=== PATIENT | female | born 1995 | race Caucasian/White ===

== ENCOUNTER 2016-04-22 10:30 | Emergency (ER) | payer BC, OTHER ==
[2016-04-22] MEDS: CLOPIDOGREL BISULFATE 75 MG TABLET PO STA (10:50)
[2016-04-22] MEDS ORDERED: ASPIRIN 81 MG TAB.CHEW PO ONE (10:54)
[2016-04-22] MEDS ORDERED: HEPARIN SODIUM,PORCINE 5,000 UNITS/ML VIAL IV ONE (10:54)
[2016-04-22] MEDS ORDERED: HEPARIN SODIUM,PORCINE/D5W 25,000 UNITS/500 ML BAG IV SCH (11:00)
[2016-04-22 11:03] LABS: Hematocrit 41.7 % (37.0-47.0); Hemoglobin 12.4 gm/dL (12.5-16.0); Mean Cell Volume 79.9 fl (78-100); Mean Corpuscular Hemoglobin 23.8 pg (27-31); Mean Corpuscular Hgb Conc 29.7 g/dl (32-36); Mean Platelet Volume 9.3 fl (6.0-9.5); Neutrophil # 12.3 K/mm3 (1.3-6.0); Neutrophil % 83.9 % (42-75.0); Platelet Count 396 K/mm3 (150-450); Red Blood Count 5.22 M/mm3 (4.2-5.4); Red Cell Distribution Width 16.7 % (11.5-14.0); White Blood Count 14.6 K/mm3 (4.0-10.5)
[2016-04-22] MEDS ORDERED: NITROGLYCERIN IN 5 % DEXTROSE 50 MG/250 ML INFUS..BTL IV PRN (11:04)
[2016-04-22 11:07] VITALS: BP 115/64
[2016-04-22 11:10] LABS: Prothrombin Time (Patient) 10.4 Seconds (9.4-11.4)
[2016-04-22 11:12] LABS: Partial Thrombolplastin Time 22.9 Seconds (24-32)
[2016-04-22 11:19] LABS: Albumin * 3.7 gm/dl (3.4-5.0); BUN/Creatinine Ratio 13.8 (9.0-21.6); Bilirubin, Total 0.4 mg/dL (0.0-1.1); Ca. Corrected For Albumin 8.9 mg/dL (8.4-10.2); Carbon Dioxide 29.4 mmol/L (24-32.6); Potassium 4.4 mmol/L (3.4-4.6); Total Protein 7.3 gm/dL (6.2-8.2)
--- NOTE | 2016-04-22 11:27 | ERNOTE ---
Chest Pain/Cardiac HPI Date of Service: 04/22/16 Chief Complaint: Chest Pain Source: patient, family Immunizations: IMMUNIZATION HX Immunizations Up to Date Yes History of Influenza Vaccine Yes Hx Pneumococcal Vaccination No Allergies/Adverse Reactions: Allergies cefaclor [From Ceclor] Allergy (Intermediate, Verified 02/20/16 08:59) Hives Penicillins Allergy (Intermediate, Verified 02/20/16 08:59) Hives Home Medications: HOME MEDICATIONS Albuterol Sulfate [Proair Respiclick] 2 puff INH PRN PRN 09/13/15 [Last Taken Unknown] Ibuprofen [Motrin] 200 - 800 mg PO Q6H PRN 7 Days 02/07/16 [Last Taken Unknown] Oxycodone HCl/Acetaminophen [Percocet 5-325 mg Tablet] 1 each PO Q4H PRN #20 tablet 02/07/16 [Last Taken Unknown] Date (Duration): 04/22/16 Time (Timing): 08:00 Timing: constant Severity/Quality: moderate, pressure Location: substernal Chest Pain Radiation: no radiation Activities at Onset: none Nitro Today/Relief: provided by ED - Tridil Aspirin Treatment Today: 81 mg x 4, provided by ED Associated Symptoms: Present: shortness of breath Prior Chest Pain/Cardiac Workup: Reports: non-cardiac Review of Systems - Review of Systems Constitutional: Present: See HPI EYE: Present: no symptoms reported ENT: Present: no symptoms reported Respiratory: Present: shortness of breath Cardiology: Present: chest pain Gastrointestinal/Abdominal: Present: no symptoms reported Genitourinary: Present: no symptoms reported Musculoskeletal: Present: no symptoms reported Skin: Present: no symptoms reported Neurological: Present: no symptoms reported Endocrine: Present: no symptoms reported Hematologic/Lymphatic: Present: no symptoms reported Psych: Present: no symptoms reported - Patient's Past Medical History Patient History - Medical: Anxiety, Depression Patient History - Cardiac/Respiratory: Asthma Patient History - Cancer: No Hx of Cancer Patient History - Surgical Procedures: , Other - PDA - Family History Mother Family History - Medical: Diabetes Type 2 Brother Family History - Medical: , Other Grandfather-Maternal Family History - Cancer: Lung - Social History Living Situations: home Alcohol Use: none Drug Use: none Physical Exam - Physical Exam General Appearance: Present: wd/wn, alert, moderate distress Eye Exam: Normal inspection: bilateral, PERRL: bilateral Ears, Nose, Throat: Present: normal ENT inspection, hearing grossly normal, normal pharynx Neck: Present: normal inspection, nontender Respiratory: Present: no respiratory distress, normal breath sounds, no accessory muscle use, chest nontender, lungs clear Cardiovascular/Chest: Present: no murmur, normal peripheral pulses, bradycardia Gastrointestinal/Abdominal: Present: normal bowel sounds, nontender, nondistended, soft, no organomegaly Rectal Exam: Present: deferred Back Exam: Present: normal inspection, normal range of motion Extremity Exam: Present: normal inspection, non-tender, no edema, normal range of motion Neurological Exam: Present: alert, oriented, normal mood/affect Skin Exam: Present: normal color, warm/dry Lymphatic Exam: Present: no adenopathy ED Progress - Results and Orders Patient's Lab Results:: I have reviewed the patient's lab results. - Vital Signs Patient's Vital Signs:: I have reviewed the patient's vital signs. Vital Signs: Vital Signs 04/22/16 04/22/16 10:40 11:00 Temperature 35.7 C L Pulse Rate 44 L 49 L Respiratory 18 Rate Blood Pressure 116/52 115/64 O2 Sat by Pulse 100 Oximetry - EKG EKG: ST elevation, STEMI EKG read: Interp. by me - Progress/Reassessment Chief Complaint: Chest Pain Progress:: Unchanged Progress Note-Subjective: 04/22/16 11:32 Pt appears to be having an Inferior VA and these changes were not present on previous EKG's. Pt to be transferred to [facility] for possible PTCA. - Transfer of Care Expected Disposition: Transfer - [facility] Departure - Departure Clinical Impression: AMI inferior wall Disposition: [facility] Condition: Critical - Critical Care Total Time (mins): 40 Critical Care: Pt received ASA, Plavix, Heparin and a Tridil drip as well as O2 while in the ED. Pain was marginally reduced
== END 2016-04-22 11:13 | disposition short-term general hospital (02) ==
LOC: ER 10:30
DX: I21.3 ST elevation (STEMI) myocardial infarction of unspecified site (principal)

== ENCOUNTER 2016-05-10 10:13 | Emergency (ER) | payer BC, OTHER ==
[2016-05-10 10:24] VITALS: BP 159/98
--- NOTE | 2016-05-10 10:47 | ERNOTE ---
Upper Extremity HPI - Narrative Date of Service: 05/10/16 - General Extremities Pain Location: hand: bilateral - L third medial finger laceration R third fourth and fifth knuckle contusion Time Seen by Provider: 05/10/16 10:30 Source: patient Exam Limitations: no limitations - Immun/Allergies/Home Medications Immunizations: IMMUNIZATION HX Immunizations Up to Date Yes History of Influenza Vaccine No Hx Pneumococcal Vaccination No Allergies/Adverse Reactions: Allergies Allergy/AdvReac Type Severity Reaction Status Date / Time cefaclor [From Ceclor] Allergy Intermediate Hives Verified 05/10/16 10:24 Penicillins Allergy Intermediate Hives Verified 05/10/16 10:24 Home Medications: HOME MEDICATIONS Albuterol Sulfate [Proair Respiclick] 2 puff INH PRN PRN 09/13/15 [Last Taken Unknown] Ibuprofen [Motrin] 200 - 800 mg PO Q6H PRN 7 Days 02/07/16 [Last Taken Unknown] - History of Present Illness Narrative: Pt. comes in with c/o cutting her medial L third on a glass while doing dishes this morning and R hand pain after punching a wall with her R hand as a reaction to the laceration of her L hand. Pt. denies any SOB, CP, NVD, numbness , or tingling. Pt. denies an prehospital treatment alleviating factors or alleviating factors. Review of Systems - Review of Systems Constitutional: Present: no symptoms reported. Absent: recent illness, fever, chills, weakness, fatigue, malaise EYE: Present: no symptoms reported ENT: Present: no symptoms reported Respiratory: Present: no symptoms reported. Absent: shortness of breath, cough , wheezing Cardiology: Present: no symptoms reported. Absent: chest pain, palpitations, edema Gastrointestinal/Abdominal: Present: no symptoms reported. Absent: nausea, vomiting, diarrhea Genitourinary: Present: no symptoms reported Musculoskeletal: Present: joint pain - R hand, joint swelling - R third fourth and fifth DIP joint. Absent: back pain Skin: Present: no symptoms reported. Absent: rash, change in hair/nails Neurological: Present: no symptoms reported. Absent: headache, dizziness/light- headedness, numbness, tingling All Other Systems: All systems neg except as marked - Patient's Past Medical History Patient History - Medical: Anxiety, Depression Patient History - Cardiac/Respiratory: No pertinent hx Patient History - Cancer: No Hx of Cancer Patient History - Surgical Procedures: , Other Patient History - Other: None LMP (Calendar): 05/07/15 - Family History Mother Family History - Medical: Diabetes Type 2 Brother Family History - Medical: , Other - Social History Living Situations: home Smoking Status: Current every day smoker Alcohol Use: none Drug Use: none - Immunizations Immunizations Up to Date: Yes Hx Pneumococcal Vaccination: No History of Influenza Vaccine: No Physical Exam - Physical Exam General Appearance: Present: wd/wn, alert, no apparent distress Eye Exam: Normal inspection: bilateral, PERRL: bilateral, EOMI: bilateral Ears, Nose, Throat: Present: normal ENT inspection Neck: Present: normal inspection, nontender Respiratory: Present: no respiratory distress, normal breath sounds, no accessory muscle use, chest nontender, lungs clear Cardiovascular/Chest: Present: regular rate, rhythm, no murmur, normal peripheral pulses Gastrointestinal/Abdominal: Present: normal bowel sounds, nontender, nondistended, soft, no organomegaly Back Exam: Present: normal inspection, normal range of motion, no CVA tenderness , no vertebral tenderness Extremity Exam: Present: decreased range of motion - R third, fourth, and fifth PIP joint L third finger Neurological Exam: Present: alert, oriented, normal mood/affect, no motor/ sensory deficits Skin Exam: Present: normal color, warm/dry, other - ecchymosis R third fourth and fith PIP joint dorsal and dorsal lateral hand. laceration lunar shape 1cm in length medial third finger. ED Progress - Vital Signs Patient's Vital Signs:: I have reviewed the patient's vital signs. Vital Signs: Vital Signs 05/10/16 10:18 Temperature 35.5 C L Pulse Rate 99 Respiratory 12 Rate Blood Pressure 159/98 O2 Sat by Pulse 100 Oximetry - X-Ray X-Ray #1 X-Ray: hand Interpretation: Reviewed by me X-ray Comments: no acute - Progress/Reassessment Chief Complaint: Hand Injury/Pain Procedures Left Medial Volar Finger 3rd Digit Anesthesia: Lidocaine w/ Epi I & D Prep: betadine prep, sterile drapes applied Wound's Depth/Shape: flap Wound Explored: clean, to base, no foreign body Wound Intervention: irrigated w/saline, debrided minimal Distal NVT: neuro/vasc intact, no tendon injury Wound Repaired With: sutures Suture Size/Type: 6-0, nylon Number of Sutures: 2 Layer Closure: Simple Estimated blood loss (ml): 2 Wound Dressing: sterile dressing applied Complications: Pt nighat procedure well Departure Clinical Impression: Hand contusion Qualifiers: Encounter type: initial encounter Laterality: right Qualified Code(s): S60.221A - Contusion of right hand, initial encounter Finger laceration Qualifiers: Encounter type: initial encounter Qualified Code(s): S61.219A - Laceration without foreign body of unspecified finger without damage to nail, initial encounter - Departure Disposition: Home self-care Condition: Good Instructions: Contusion, [id number], Form - Excuse from Work, School, or Physical Activity, Laceration Care, Adult, [id number] Additional Instructions: Please do not use L hand as much as possible for 24 hours then keep clean and dry and apply neosporin twice a day. Have sutuews removed in 7-10 days.
[2016-05-10] MEDS ORDERED: KETOROLAC TROMETHAMINE 30 MG/ML VIAL IM ONE (11:55)
[2016-05-10] MEDS ORDERED: KETOROLAC TROMETHAMINE 30 MG/ML VIAL ONE (11:56)
== END 2016-05-10 12:21 | disposition home or self-care (01) ==
LOC: ER 10:13
PROC: 0HQGXZZ Repair Left Hand Skin, External Approach (ICD-10-PCS; principal; 2016-05-10)
DX: S61.213A Laceration without foreign body of left middle finger without damage to nail, initial encounter (principal); W25.XXXA Contact with sharp glass, initial encounter; S60.221A Contusion of right hand, initial encounter; W22.01XA Walked into wall, initial encounter

== ENCOUNTER 2016-05-20 11:42 | Emergency (ER) | payer BC, OTHER ==
[2016-05-20 11:42] VITALS: BP 159/98
[2016-05-20] MEDS ORDERED: SUCRALFATE 1 G/10 ML UDC PO ONE (12:02)
[2016-05-20] MEDS ORDERED: MAG HYDROX/ALUMINUM HYD/SIMETH 30 ML UDC PO ONE (12:02)
[2016-05-20] MEDS ORDERED: LIDOCAINE HCL 20 ML UDC PO ONE (12:02)
--- NOTE | 2016-05-20 12:15 | ERNOTE ---
Abdominal HPI - Narrative Date of Service: 05/20/16 - General Chief Complaint: Abdominal Pain Time Seen by Provider: 05/20/16 11:57 Source: patient, RN notes reviewed, past records Exam Limitations: other - Very poor historian - Immun/Allergies/Home Medications Immunizatons: IMMUNIZATION HX Immunizations Up to Date Yes History of Influenza Vaccine No Hx Pneumococcal Vaccination No Allergies/Adverse Reactions: Allergies cefaclor [From Ceclor] Allergy (Intermediate, Verified 05/20/16 11:50) Hives Penicillins Allergy (Intermediate, Verified 05/20/16 11:50) Hives Home Medications: HOME MEDICATIONS Albuterol Sulfate [Proair Respiclick] 2 puff INH PRN PRN 09/13/15 [Last Taken Unknown] Omeprazole 40 mg PO DAILY #30 capsule. 05/20/16 [Last Taken Unknown] - History of Present Illness Narrative: 20 y/o female ambulatory to the ED with her grandmother for abdominal/chest pain that woke her up at 0530 this morning. The pain is constant and is in her lower sternal region. She took ibuprofen and aspirin without improvement. She also reports making herself vomit which did not help either. She reports having a history of acid reflux during her that felt similar but less severe. She was seen here less than a month ago with chest pain. Her EKG showed an inferior [place]. She was transferred to [facility]. She reports being "sent home on a heart monitor" but when asked if she did indeed have a heart attack she does not know. Date (Duration): 05/20/16 Time (Timing): 05:30 Timing: constant Quality: severe, aching, stabbing Activities at Onset: sleep Modifying Factors - (Improves): Absent: analgesics, sitting up, vomiting Modifying Factors - (Worsens): Absent: breathing, coughing, lying down Associated Symptoms: Present: chest pain. Absent: headache, back pain, neck pain, diaphoresis, fever/chills, shortness of breath, syncope Prior Abdominal Problems: Present: similar symptoms Prior Treatment: Present: recently seen, treated by physician, recently hospitalized. Absent: currently on antibiotics Review of Systems - Review of Systems Constitutional: Present: See HPI EYE: Present: no symptoms reported ENT: Absent: nose congestion, sore throat Respiratory: Absent: shortness of breath, cough Cardiology: Present: See HPI Gastrointestinal/Abdominal: Present: See HPI Genitourinary: Absent: other - possible Musculoskeletal: Present: See HPI Skin: Present: no symptoms reported Neurological: Present: See HPI Endocrine: Present: no symptoms reported Hematologic/Lymphatic: Present: no symptoms reported Psych: Present: no symptoms reported - Patient's Past Medical History Patient History - Medical: Anemia, Anxiety, Depression Patient History - Cardiac/Respiratory: Asthma, Bronchitis, Other - Patent ductus arteriosis, bronchopulmonary dysplasia Patient History - Cancer: No Hx of Cancer Patient History - Surgical Procedures: , Ear Tubes, T & A, Other - Repair of congenital cardiac abnormality, ovarian cystectomy Patient History - Other: None LMP (females 10-50): last week LMP (Calendar): 05/07/15 - Family History Mother Family History - Medical: Diabetes Type 2 Brother Family History - Medical: , Other - Social History Living Situations: home Abuse History: No History of abuse Psych History: No pertinent hx Smoking Status: Current every day smoker Cigarettes Packs Per Day: 0.3 Have you smoked in the past 12 months: Yes Alcohol Use: none Drug Use: none - Immunizations Immunizations Up to Date: Yes Hx Pneumococcal Vaccination: No History of Influenza Vaccine: No Physical Exam - Physical Exam General Appearance: Present: alert, mild distress, obese, other - disheveled, dirty appearance, laying on exam table moaning Neck: Present: normal inspection, nontender, supple Respiratory: Present: no respiratory distress, normal breath sounds, no accessory muscle use, lungs clear Cardiovascular/Chest: Present: regular rate, rhythm, no murmur, normal peripheral pulses Gastrointestinal/Abdominal: Present: normal bowel sounds, nondistended, soft, tenderness - epigastric Neurological Exam: Present: alert, oriented, no motor/sensory deficits. Absent : normal mood/affect Skin Exam: Present: normal color, warm/dry ED Progress - Vital Signs Patient's Vital Signs:: I have reviewed the patient's vital signs. Vital Signs: Vital Signs 05/20/16 11:47 Temperature 35.7 C L Pulse Rate 67 Respiratory 16 Rate - EKG EKG: other - Sbrady, 43 - Progress/Reassessment Chief Complaint: Abdominal Pain Progress:: Improved Progress Note-Subjective: 05/20/16 12:56 Patient reports pain mostly gone after GI cocktail, talking on phone - appears to not be in any discomfort. Will rx Zantac. Departure - Departure Clinical Impression: Gastroesophageal reflux Qualifiers: Esophagitis presence: esophagitis presence not specified Qualified Code(s): K21.9 - Gastro-esophageal reflux disease without esophagitis Disposition: Home Follow Up Needed Condition: Stable Instructions: Gastroesophageal Reflux Disease, Adult, [id number] Additional Instructions: Take Prilosec as directed OK to take TUMS if needed for symptoms as well Do not take aspirin, ibuprofen, or aleve on an empty stomach Follow up with your doctor if symptoms do not improve Prescriptions: Omeprazole 40 mg PO DAILY #30 capsule.
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
== END 2016-05-20 13:16 | disposition home or self-care (01) ==
LOC: ER 11:42
DX: K21.9 Gastro-esophageal reflux disease without esophagitis (principal); F17.210 Nicotine dependence, cigarettes, uncomplicated

== ENCOUNTER 2016-08-20 13:32 | Emergency (ER) | payer BC, OTHER ==
--- NOTE | 2016-08-20 14:29 | ERNOTE ---
Medical Problem HPI - Narrative Date of Service: 08/20/16 - General Chief Complaint: General Assessment Time Seen by Provider: 08/20/16 14:23 Source: patient Exam Limitations: no limitations - Immun/Allergies/Home Medications Immunizations: IMMUNIZATION HX Immunizations Up to Date Yes History of Influenza Vaccine Yes Hx Pneumococcal Vaccination No Allergies/Adverse Reactions: Allergies cefaclor [From Ceclor] Allergy (Intermediate, Verified 08/20/16 13:42) Hives Penicillins Allergy (Intermediate, Verified 08/20/16 13:42) Hives Home Medications: HOME MEDICATIONS Albuterol Sulfate [Proair Respiclick] 2 puff INH PRN PRN 09/13/15 [Last Taken Unknown] Omeprazole 40 mg PO DAILY #30 capsule. 05/20/16 [Last Taken Unknown] Pnv95/Iron Fum/Folic Acid [ Tablet] 1 each PO DAILY 08/20/16 [Last Taken Unknown] - History of Present History Narrative: Pt. comes in with 1 week history of bruising and swelling of her vagina. Pt. had a fall a week ago and she is 18 weeks so she went to see her OBGYN on Tuesday and was told she was fine but the pain in her vaginal area and bruidsing is getting worse per pt. Pt. denies any prehospital treatment alleviating or aggravating factors. Review of Systems - Review of Systems Constitutional: Present: no symptoms reported. Absent: recent illness, fever, chills, weakness, fatigue EYE: Present: no symptoms reported ENT: Present: no symptoms reported Respiratory: Present: no symptoms reported. Absent: shortness of breath, cough , wheezing Cardiology: Present: no symptoms reported. Absent: chest pain, palpitations, edema Gastrointestinal/Abdominal: Present: no symptoms reported Genitourinary: Present: pain - vagina, other - swelling and bruising to vagina Musculoskeletal: Present: no symptoms reported. Absent: back pain, joint pain Skin: Present: no symptoms reported Neurological: Present: no symptoms reported. Absent: headache, dizziness/light- headedness, numbness, tingling All Other Systems: All systems neg except as marked - Patient's Past Medical History Patient History - Medical: Anemia, Anxiety, Depression Patient History - Cardiac/Respiratory: Asthma, Bronchitis, Other Patient History - Cancer: No Hx of Cancer Patient History - Surgical Procedures: , Ear Tubes, T & A, Other Patient History - Other: None LMP (Calendar): 05/07/15 - Family History Mother Family History - Medical: Diabetes Type 2 Brother Family History - Medical: , Other - Social History Living Situations: home Abuse History: No History of abuse Psych History: No pertinent hx Smoking Status: Never smoker Alcohol Use: none Drug Use: none - Immunizations Immunizations Up to Date: Yes Hx Pneumococcal Vaccination: No History of Influenza Vaccine: Yes Physical Exam - Physical Exam General Appearance: Present: wd/wn, alert, no apparent distress Eye Exam: Normal inspection: bilateral, PERRL: bilateral, EOMI: bilateral Ears, Nose, Throat: Present: normal ENT inspection, normal pharynx Neck: Present: normal inspection, nontender. Absent: lymphadenopathy (R), lymphadenopathy (L) Respiratory: Present: no respiratory distress, normal breath sounds, no accessory muscle use, chest nontender, lungs clear Cardiovascular/Chest: Present: regular rate, rhythm, no murmur, normal peripheral pulses Back Exam: Present: normal inspection Extremity Exam: Present: normal inspection Pelvic Exam: Present: other - vulvar bruising and swelling from hematoma L anterior vulva healing as expected. ED Progress - Vital Signs Patient's Vital Signs:: I have reviewed the patient's vital signs. Vital Signs: Vital Signs 08/20/16 13:38 Temperature 36.5 C Pulse Rate 89 Respiratory 18 Rate Blood Pressure 144/79 O2 Sat by Pulse 100 Oximetry - Progress/Reassessment Chief Complaint: General Assessment Departure - Departure Clinical Impression: Vulvar hematoma Disposition: Home self-care Condition: Good Instructions: Hematoma, [id number], Form - Excuse from Work, School, or Physical Activity Additional Instructions: Please follow up with [facility] in 1 week and apply heat and ice to bruised area alternating for a week.
--- OUTSIDE RECORDS SUMMARY | 2016-08-20 14:31 | XMS REPORT | Continuity of Care Document ---
:1995 Author Organization [facility] ([facility]) Address [address] [place] [address] Phone [phone] Care Team Providers Name Role Phone Rito Johnson Primary Care Provider [phone] Source Comments This disclosure is being made pursuant to the Care Everywhere program, applicable federal and state laws, and may not contain all informaitonavailable regarding this patient.[facility] ([facility]) Active Allergies and Adverse Reactions Allergen [...] Indications: ABDOMINAL SURGERY DEEP VEIN THROMBOSIS PREVENTION vitamin Take 1 tablet by Active ( PLUS) mouth daily. 27-1 mg tablet Active Problems Problem Noted Date Monocular esotropia, [...] Diagnosis Procedure Comments Diagnosis Procedure Comments laser 09/09/01 Muscle surgery ou Other Ocular Diagnoses: 1.ROP 2. Ocular Procedures OD: 1.see above 2. Ocular Procedures OS: 1. See above 2. Non-Ocular Medical History: 1. 2. Transient alteration of awareness 05/20/2008 06/09/2011 Most Recent Encounters Date Type Specialty Providers Description 07/29/2016 Office Visit Ophthalmology - Manas Phan, Dx: Retinal holes, Specialty MD left (Primary Dx) Immunizations Name Dates Previously Given Next Due DTP/Hib 01/01/1994,1993 Hepatitis B, unspecified 01/01/1994,1993 MMR 05/25/2013 Polio, unspecified 01/01/1994,1993 Social History Tobacco Use Types Packs/Day Years Used Date Current Some Day Smoker Cigarettes 0.25 5 Quit: 02/07/2014 Smokeless Tobacco: Never Used Tobacco Cessation:Ready to Quit: No; Counseling Given: Yes Comments:Quit 09/2012. Alcohol Use Drinks/Week [...] 06/27/2014 6:00 AM CDT Plan of Care Date Type Specialty Providers Description 08/31/2016 Appointment Ophthalmology - Avila Souza MD Chief Comp: Patient Specialty [address] [place] [address] Visit [phone] (Fax) Health Maintenance Due Date Last Done Comments Hepatitis B Vaccine (3 of 3 - Primary 03/05/1994 01/01/1994, 1993 Series) HPV Vaccine (1 of 3 - Female 3 Dose 09/02/2004 Series) Tdap Vaccine 09/02/2004 Cervical Cancer Screening 09/03/2011 Lipid Disorder Screening 09/03/2011 Td Vaccine 09/03/2011 01/01/1994, 1993 Pneumococcal Vaccine (1 of 1 - PPSV23) 09/02/2012 Varicella Vaccine (1 of 2 - Adult - No 06/22/2013 Evidence of Immunity) Influenza Vaccine: Seasonal (Season Ended) 2016 MMR Vaccine Completed 05/25/2013 Results from Last 3 Months Not on file
[2016-08-20 15:06] VITALS: BP 131/72
== END 2016-08-20 15:07 | disposition home or self-care (01) ==
LOC: ER 13:32
DX: N90.89 Other specified noninflammatory disorders of vulva and perineum (principal); Z33.1 Pregnant state, incidental; Z3A.18 18 weeks gestation of pregnancy; W19.XXXD Unspecified fall, subsequent encounter

== ENCOUNTER 2016-12-20 13:48 | Observation (INO) | payer OTHER ==
[2016-12-20] MEDS ORDERED: RINGER'S SOLUTION,LACTATED 1,000 ML IV ONE (14:49)
[2016-12-20] MEDS: DEXTROSE 5%-LACTATED RINGERS 1,000 ML IV PRN (18:02)
[2016-12-20] MEDS ORDERED: ACETAMINOPHEN 325 MG TABLET PO PRN (18:19)
[2016-12-20 18:53] LABS: Hematocrit 32.3 % (37.0-47.0); Hemoglobin 9.5 gm/dL (12.5-16.0); Mean Cell Volume 73.2 fl (78-100); Mean Corpuscular Hemoglobin 21.5 pg (27-31); Mean Corpuscular Hgb Conc 29.4 g/dl (32-36); Mean Platelet Volume 9.8 fl (6.0-9.5); Neutrophil # 7.9 K/mm3 (1.3-6.0); Neutrophil % 76.1 % (42-75.0); Platelet Count 232 K/mm3 (150-450); Red Blood Count 4.41 M/mm3 (4.2-5.4); Red Cell Distribution Width 16.3 % (11.5-14.0); White Blood Count 10.4 K/mm3 (4.0-10.5)
[2016-12-20 18:54] LABS: Urine Bilirubin Negative (NEGATIVE); Urine Blood Negative /ul (NEGATIVE); Urine Ketone 5 mg/dL (NEGATIVE); Urine Nitrite Negative (NEGATIVE); Urine Protein Negative (NEGATIVE); Urine Urobilinogen Normal (NORMAL)
[2016-12-20 19:01] LABS: Urine Appearance Clear; Urine Bacteria None Seen; Urine Color Yellow; Urine RBC None Seen /hpf (0-5); Urine WBC None Seen /hpf (0-5)
[2016-12-20 19:15] LABS: Cocaine Ur Negative (NEGATIVE); Urine Barbiturate Negative (NEGATIVE); Urine Benzodiazepines Negative (NEGATIVE); Urine Opiates Negative (NEGATIVE); Urine PCP Negative (NEGATIVE); Urine THC Negative (NEGATIVE)
--- NOTE | 2016-12-21 08:43 | PN ---
Subjective - Date and Time Seen Date: 12/21/16 Time: 08:37 Objective - Review of Systems Generalized/Overall Review: Reports: No Symptoms Reported EENTM: Reports: No Symptoms Reported Respiratory: Reports: No Symptoms Reported Cardiac: Reports: No Symptoms Reported Abdominal: Reports: No Symptoms Reported Genitourinary Symptoms: Reports: No Symptoms Reported Musculoskeletal Complaints: Reports: No Symptoms Reported Neurological: Reports: No Symptoms Reported Skin: Reports: No Symptoms Reported Endocrine: Reports: No Symptoms Reported - Vitals Vitals: Last Vital Signs Temp 36.9 C 08/20/16 15:04 Pulse Resp BP 131/72 08/20/16 15:04 Pulse Ox heart tones are baseline of 130. NST reactive. Contractions resolved. - Abnormal Lab Findings Abnormal Lab Findings: Abnormal Lab Results 12/20/16 Range/Units 18:14 Hgb 9.5 L (12.5-16.0) gm/dL Hct 32.3 L (37.0-47.0) % MCV 73.2 L (78-100) fl MCH 21.5 L (27-31) pg MCHC 29.4 L (32-36) g/dl RDW 16.3 H (11.5-14.0) % MPV 9.8 H (6.0-9.5) fl Immature Gran % (Auto) 1.80 H (0.001-0.429) % Immature Gran # (Auto) 0.19 H (0.000-0.0310) K/mm3 Neutrophils % 76.1 H (42-75.0) % Lymphocytes % 13.9 L (20-51) % Neutrophils # 7.9 H (1.3-6.0) K/mm3 Lymphocytes # 1.4 L (1.5-3.5) k/mm3 - Exam Constitutional: Present: Alert, Oriented x3, Cooperative, No distress ENT Exam: Present: hearing grossly normal Breasts: Present: Exam deferred Respiratory: Present: no respiratory distress Cardiovascular/Chest: Present: normal peripheral pulses, regular rate, rhythm, no edema Abdomen: Present: soft, nontender, no rebound tenderness /Rectal: Present: Exam deferred Extremity: Present: non-tender, no pedal edema, no calf tenderness Skin Exam: Present: normal color, warm/dry, no cyanosis Neurologic: Present: normal mood/affect, oriented x 3 Appearance: Present: appropriate appearance Eye contact: Present: cooperative, good eye contact, normal speech Assessment/Plan - Problems/Diagnosis (1) Fetus or affected by maternal injury Problem: Acute Narrative: Abruption precautions. Avoid heavy lifting or strenuous activity. Use extra caution to prevent future falls. (2) Threatened labor Problem: Acute Qualifiers: Trimester: third trimester Qualified Code(s): O47.03 - False labor before 37 completed weeks of gestation, third trimester Narrative: Discharge home with labor precautions. Follow-up in the office in 1 week.
[2016-12-21] MEDS: DEXTROSE 5%-LACTATED RINGERS 1,000 ML IV PRN (09:47)
== END 2016-12-21 09:50 | disposition home or self-care (01) ==
LOC: OBCLINIC 13:48 → OB 17:55
PROVIDERS: ADMIT Obstetrics & Gynecology; ATTEND Obstetrics & Gynecology
DX: O71.89 Other specified obstetric trauma (principal); O99.013 Anemia complicating pregnancy, third trimester; E66.01 Morbid (severe) obesity due to excess calories; Z87.891 Personal history of nicotine dependence; O47.03 False labor before 37 completed weeks of gestation, third trimester; Z3A.31 31 weeks gestation of pregnancy
CPT/HCPCS: 36415; 59025; 80307; 81001; 85025; 87081; G0378

== ENCOUNTER 2017-02-07 16:41 | Inpatient (IN) | payer OTHER ==
[2017-02-07] MEDS ORDERED: OXYTOCIN 20 UNITS in RINGER'S SOLUTION,LACTATED 1,000 ML IV ONE (16:47)
[2017-02-07] MEDS ORDERED: RINGER'S SOLUTION,LACTATED 1,000 ML IV PRN ×2 (16:47)
[2017-02-07] MEDS ORDERED: CLINDAMYCIN PHOSPHATE 900 MG in DEXTROSE 5 % IN WATER 100 ML IV ONE ×2 (16:47)
[2017-02-07] MEDS ORDERED: RINGER'S SOLUTION,LACTATED 1,000 ML IV ONE ×4 (17:45→19:50)
[2017-02-07] MEDS ORDERED: ONDANSETRON HCL/PF 2 MG/ML VIAL IV PRN (19:50)
[2017-02-07] MEDS ORDERED: SIMETHICONE 80 MG TAB.CHEW PO PRN (19:50)
[2017-02-07] MEDS ORDERED: BISACODYL 10 MG SUPP.RECT RC PRN (19:50)
[2017-02-07] MEDS ORDERED: SENNOSIDES 8.6 MG TABLET PO PRN (19:50)
[2017-02-07] MEDS ORDERED: HYDROmorphone HCL 4 MG/ML DISP.SYRIN IV ONE (19:54)
--- NOTE | 2017-02-07 19:56 | OR ---
Operative Report - Dictated Report Narrative: Indication: 21-year-old 4 para 210 with prior section 3 presents in labor status: Planned Pre Operative Diagnosis: 38-1/7 week intrauterine , prior section 3, labor, morbid obesity Post Operative Diagnosis: Same. Procedure: Repeat low transverse section. Surgeon: Minoo Charlton DO Ranch Helper: OR Staff Anesthesia: Spinal, TAP block Estimated Blood Loss: 550 mL Urine Output: 200 mL clear urine Fluids Replacement: 1700 mL Drains: Keller to gravity Surgical Complications: None Specimens: Placenta to freezer Findings: Female born at 18[birth year] on 02/07/2019 with Apgars 9 and 9, weighing 3817 g cephalic presentation. Omental adhesions to the anterior abdominal wall and bladder. Normal uterus, tubes, ovaries Technique: The patient was taken to the operating room and placed in dorsal supine position with a left lateral tilt. After adequate spinal anesthesia, keller catheter inserted, SCDs placed, and clindamycin 900 mg intravenously given preoperatively, the abdominal cavity was entered using sharp and blunt dissection. Omental adhesions were taken down with the Bovie. Two rolled laps were placed in the pericolic gutters on either side of the uterus. Bladder flap was created with sharp and blunt dissection. A transverse incision was made in the lower uterine segment and extended laterally and upwardly with digital traction. Clear fluid was noted upon amniotomy. The was delivered easily. The cord was clamped and cut after approximately 1 minute while the infant was warmed and dried. The was handed off to awaiting staff anesthetist. The placenta was allowed to deliver spontaneously. The uterus was cleared of clot and debris. Uterine incision was closed with 0 Vicryl using a running stitch. A second imbricating layer was placed. A figure-of- eight suture was placed in the left third of the uterine incision to provide excellent hemostasis. The rolled laps were removed from the abdominal cavitiy. The peritoneum was closed with a running 3-0 Monocryl. The same suture was used to approximate the rectus and pyramidalis muscles. The fascia was closed with a running 0 Vicryl. The subcutaneous layer was closed with a running 3-0 Monocryl. The same suture was used to approximate the subdermal layer. The skin was closed with a running 4-0 Monocryl and Dermabond. Sponge, lap, needle , and instrument count were correct x 2. Disposition: To post anesthesia care unit in good condition History for MU Definition: * The number of deliveries resulting in a live the patient experienced prior to current hospitalization * The previous delivery of live twins or any live multiple gestation is considered one live event. *If primagravida or nulliparous is documented select zero for the number of previous live births. Live Events: 3
--- NOTE | 2017-02-07 20:12 | OR ---
Anesthesia Procedure Note - Anesthesia Procedure Note Narrative: Vital Signs - Last Taken Temp 36.4 C L 02/07/17 20:05 Pulse 82 02/07/17 20:05 Resp 20 02/07/17 20:05 BP 126/60 02/07/17 20:05 Pulse Ox 97 02/07/17 20:05 O2 Oxygen Delivery Method Room Air 02/07/17 20:09 ANESTHESIA PROCEDURE NOTE Date of procedure: 02/07/2017. Time of procedure: 1999. Performed by: Fredrick De La Torre CRNA Weight Reducing Technician: Valery Fernandez RN . Preprocedure diagnosis: Status post a section. Desire for postoperative analgesia. Post procedure diagnosis: Same. Procedure: Bilateral ultrasound guided tap block. Indications: Postoperative analgesia. Findings: Patient placed in the supine position in the PACU. The right side patient's abdomen was prepped with ChloraPrep. Ultrasound was used to identify the fascial layer between the internal oblique and transabdominal muscles. A 22 -gauge 2 inch Stimuplex regional block needle was inserted into the fascial layer. A total of 20 mL of 0.25% Marcaine with epinephrine 1 200,000 was injected. Adequate spread of local anesthetic was noted. Procedure was then repeated on patient's left side. EBL: Minimal. Fluids: N/A. Specimen: N/A. Post procedure condition: The patient tolerated the procedure well. No complications were noted. Thank you for this consultation Fredrick De La Torre CRNA
[2017-02-07] MEDS: oxyCODONE HCL/ACETAMINOPHEN 1 TAB TABLET PO PRN (21:40)
[2017-02-07] MEDS: IBUPROFEN 800 MG TABLET PO PRN (22:40)
[2017-02-08] MEDS: DOCUSATE SODIUM 100 MG CAPSULE PO SCH ×4 (01:38→20:26)
[2017-02-08] MEDS: oxyCODONE HCL/ACETAMINOPHEN 1 TAB TABLET PO PRN ×4 (01:40→20:26)
[2017-02-08] MEDS: IBUPROFEN 800 MG TABLET PO PRN ×3 (05:06→18:15)
[2017-02-08] MEDS: ENOXAPARIN SODIUM 40 MG/0.4 ML SYRG SC SCH (05:07)
[2017-02-08] MEDS: PRENATAL VITS96/IRON FUM/FOLIC 1 TAB TABLET PO SCH (09:23)
--- NOTE | 2017-02-08 12:09 | PN ---
Subjective - Date and Time Seen Date: 02/08/17 Time: 12:07 Objective - Vitals Vitals: Last Vital Signs Temp 36.5 C 02/08/17 07:50 Pulse 106 H 02/08/17 07:50 Resp 20 02/08/17 07:50 BP 116/74 02/08/17 07:50 Pulse Ox 98 02/08/17 07:50 Patient denies complaints. Tolerating regular diet. Ambulating without difficulty. Pain well controlled. Lochia wnl. Abdomen - soft, appropriately tender Incision - clean, dry, intact Uterus - firm, at umbilicus -1 No calf tenderness Impression: Post op day #1 s/p repeat section. Morbid obesity. Asthma-stable. Anemia-stable. Plan: Continue routine post-operative/ care Cauti Physician Documentation - Urinary Catheter Management Urethral (Coombs) Date of Insertion: 02/07/17 Time of Insertion: 18:10 Date of Removal: 02/08/17 Time of Removal: 07:50
[2017-02-08] MEDS: FERROUS SULFATE 325 MG TABLET PO SCH (16:18)
[2017-02-09] MEDS: ENOXAPARIN SODIUM 40 MG/0.4 ML SYRG SC SCH (04:01)
[2017-02-09] MEDS: oxyCODONE HCL/ACETAMINOPHEN 1 TAB TABLET PO PRN ×4 (04:02→19:09)
[2017-02-09] MEDS: IBUPROFEN 800 MG TABLET PO PRN ×3 (04:02→19:09)
[2017-02-09] MEDS: PRENATAL VITS96/IRON FUM/FOLIC 1 TAB TABLET PO SCH (09:46)
[2017-02-09] MEDS: DOCUSATE SODIUM 100 MG CAPSULE PO SCH ×3 (09:47→21:23)
--- NOTE | 2017-02-09 17:53 | PN ---
Subjective - Date and Time Seen Date: 02/09/17 Time: 17:52 Objective - Vitals Vitals: Last Vital Signs Temp 36.9 C 02/09/17 10:35 Pulse 74 02/09/17 10:35 Resp 14 02/09/17 10:35 BP 132/72 02/09/17 11:12 Pulse Ox 98 02/09/17 10:35 Patient denies complaints. Ambulating well. Tolerating regular diet. Pain well controlled. Lochia wnl. Abdomen - soft, appropriately tender Incision - clean, dry, intact Uterus - firm, at umbilicus -2 No calf tenderness Impression: Post op day #2 s/p repeat section. Morbid obesity. Asthma-stable. Anemia-stable. Plan: Continue routine post-operative/ care Cauti Physician Documentation - Urinary Catheter Management Urethral (Coombs) Date of Insertion: 02/07/17 Time of Insertion: 18:10 Date of Removal: 02/08/17 Time of Removal: 07:50
[2017-02-09] MEDS: FERROUS SULFATE 325 MG TABLET PO SCH (18:03)
[2017-02-10] MEDS: ENOXAPARIN SODIUM 40 MG/0.4 ML SYRG SC SCH (05:05)
[2017-02-10] MEDS: oxyCODONE HCL/ACETAMINOPHEN 1 TAB TABLET PO PRN ×2 (06:45→10:56)
[2017-02-10] MEDS: IBUPROFEN 800 MG TABLET PO PRN (06:45)
[2017-02-10] MEDS: DOCUSATE SODIUM 100 MG CAPSULE PO SCH (09:04)
[2017-02-10] MEDS: PRENATAL VITS96/IRON FUM/FOLIC 1 TAB TABLET PO SCH (09:04)
[2017-02-10 11:02] VITALS: BP 129/71
--- NOTE | 2017-02-10 17:44 | PN ---
Subjective - Date and Time Seen Date: 02/10/17 Time: 17:43 - seen this a.m. Objective - Vitals Vitals: Last Vital Signs Temp 37.4 C 02/10/17 08:15 Pulse 66 02/10/17 08:15 Resp 20 02/10/17 08:15 BP 129/71 02/10/17 11:01 Pulse Ox 98 02/10/17 08:15 Patient denies complaints. Ambulating without difficulty. Tolerating regular diet. Pain well controlled. Lochia wnl. Abdomen - soft, appropriately tender Incision - clean, dry, intact Uterus - firm, at umbilicus -3 No calf tenderness Impression: Post op day #3 s/p repeat section. Anemia-stable. Morbid obesity-counseled. Asthma-stable. Plan: Routine discharge instructions Cauti Physician Documentation - Urinary Catheter Management Urethral (Coombs) Date of Insertion: 02/07/17 Time of Insertion: 18:10 Date of Removal: 02/08/17 Time of Removal: 07:50
== END 2017-02-10 12:00 | disposition home or self-care (01) | DRG 765 ==
LOC: OB 16:41
PROVIDERS: ADMIT Obstetrics & Gynecology; ATTEND Obstetrics & Gynecology
PROC: 10907ZC Drainage of Amniotic Fluid, Therapeutic from Products of Conception, Via Natural or Artificial Opening (ICD-10-PCS; 2017-02-07)
PROC: 4A1HXCZ Monitoring of Products of Conception, Cardiac Rate, External Approach (ICD-10-PCS; 2017-02-07)
PROC: 10D00Z1 Extraction of Products of Conception, Low, Open Approach (ICD-10-PCS; principal; 2017-02-07 18:00)
DX: O99.02 Anemia complicating childbirth (principal); Z68.41 Body mass index [BMI] 40.0-44.9, adult; D50.8 Other iron deficiency anemias; O34.219 Maternal care for unspecified type scar from previous cesarean delivery; O99.214 Obesity complicating childbirth; E66.01 Morbid (severe) obesity due to excess calories; F41.9 Anxiety disorder, unspecified; J45.909 Unspecified asthma, uncomplicated; Z3A.38 38 weeks gestation of pregnancy; Z37.0 Single live birth

== ENCOUNTER 2017-02-11 17:11 | Emergency (ER) | payer OTHER ==
[2017-02-11 18:19] VITALS: BP 117/69
--- NOTE | 2017-02-11 19:39 | ERNOTE ---
<Pam Kinney - Last Filed: 02/11/17 20:01> Headache ER HPI - General Presenting Symptoms: headache Time Seen by Provider: 02/11/17 19:17 Source: patient Exam Limitations: no limitations - Immun/Allergies/Home Medications Immunizations: IMMUNIZATION HX Immunizations Up to Date Yes History of Influenza Vaccine Yes Hx Pneumococcal Vaccination No Allergies/Adverse Reactions: Allergies cefaclor [From Ceclor] Allergy (Intermediate, Verified 02/11/17 17:42) Hives Penicillins Allergy (Intermediate, Verified 02/11/17 17:42) Hives Home Medications: HOME MEDICATIONS Ibuprofen [Motrin] 200 - 800 mg PO Q6H PRN #100 tab 02/10/17 [Last Taken Unknown ] oxyCODONE HCL/ACETAMINOPHEN [Percocet 5 MG/325 MG] 1 tab PO Q4H PRN #20 tablet 02/10/17 [Last Taken Unknown] - History of Present Illness Narrative: Patient had a repeat on 02/07, the following day she started to have headaches, mainly with sitting up and standing up, no significant pain with laying down, no vomiting. She was discharged from the hospital yesterday Timing of Headache: intermittent Context Headache: Present: new onset Quality: Present: pressure Severity-Currently: Present: moderate Headache frequency: Present: no recent headache. Absent: chronic headaches Modifying Factors - (Improves): Reports: other - laying down Modifying Factors - (Worsens): Reports: other - sitting up Associated Symptoms: Denies: fever/chills, nausea, vomiting, vision changes, dizziness, loss of consciousness Exacerbated by:: Reports: light, position. Denies: noise Prior Treament: Reports: recently seen. Denies: similar symptoms before Review of Systems - Review of Systems Constitutional: Present: recent illness - c section. Absent: fever, chills EYE: Absent: vision changes ENT: Absent: nose congestion, sore throat Respiratory: Absent: shortness of breath Cardiology: Absent: chest pain Gastrointestinal/Abdominal: Absent: nausea, vomiting, abdominal pain Genitourinary: Present: other - vaginal bleeding post delivery as heavy as a period Musculoskeletal: Absent: back pain, neck pain Neurological: Present: headache. Absent: weakness, numbness - Patient's Past Medical History Patient History - Medical: Anemia, Anxiety, Depression Patient History - Cardiac/Respiratory: Asthma, Bronchitis, Other Patient History - Cancer: No Hx of Cancer Patient History - Surgical Procedures: , Ear Tubes, T & A, Other Patient History - Other: None - Family History Mother Family History - Medical: Diabetes Type 2 Brother Family History - Medical: , Other - Social History Living Situations: home Abuse History: No History of abuse Psych History: No pertinent hx Smoking Status: Never smoker Alcohol Use: none Drug Use: none - Immunizations Immunizations Up to Date: Yes Hx Pneumococcal Vaccination: No History of Influenza Vaccine: Yes Physical Exam - Physical Exam General Appearance: Present: wd/wn, alert, no apparent distress, obese Head Exam: Present: normal inspection, no evidence of injury Eye Exam: Normal inspection: bilateral, PERRL: bilateral Ears, Nose, Throat: Present: normal ENT inspection, normal pharynx Neck: Present: normal inspection, nontender, supple, full range of motion Respiratory: Present: no respiratory distress, normal breath sounds, no accessory muscle use, lungs clear Cardiovascular/Chest: Present: regular rate, rhythm, no murmur Gastrointestinal/Abdominal: Present: normal bowel sounds, nondistended, soft, other - fundus palpable below umbilicus,slightly tender Neurological Exam: Present: alert, oriented, normal mood/affect, no motor/ sensory deficits Skin Exam: Present: normal color, warm/dry ED Progress - Vital Signs Patient's Vital Signs:: I have reviewed the patient's vital signs. Vital Signs: Vital Signs 02/11/17 02/11/17 17:37 18:17 Temperature 37.0 C Pulse Rate 93 69 Respiratory 16 16 Rate Blood Pressure 137/90 117/69 O2 Sat by Pulse 98 97 Oximetry - Progress/Reassessment Chief Complaint: Headache Progress Note-Subjective: 02/11/17 19:26 discussed with Luis Rodriguez (LODGE ATTENDANT) to consult for possible blood patch, will come as soon as available (currently in surgery) - Transfer of Care Physician Sign Out: Pam Kinney Receiving Physician: Charmaine Ovalles Pending Results: Physician/consult arrival Departure Clinical Impression: Spinal headache - Departure Disposition: Home self-care Condition: Stable Additional Instructions: You have been diagnosed with headaches, possibly of the spinal variety. Please drink a lot of fluids. Also take your pain medication at home as needed. Please follow-up with Dr. Charlton next week. Referrals: Raghav Charlton DO [Primary Care Provider] - <NidiafilemonCharmaine lackey - Last Filed: 02/11/17 20:43> Headache ER HPI - Immun/Allergies/Home Medications Immunizations: IMMUNIZATION HX Immunizations Up to Date Yes History of Influenza Vaccine Yes Hx Pneumococcal Vaccination No - Family History Mother Family History - Medical: Diabetes Type 2 Brother Family History - Medical: , Other ED Progress - Vital Signs Vital Signs: Vital Signs 02/11/17 02/11/17 17:37 18:17 Temperature 37.0 C Pulse Rate 93 69 Respiratory 16 16 Rate Blood Pressure 137/90 117/69 O2 Sat by Pulse 98 97 Oximetry Plan - Plan Plan: This patient was signed out to me after she was already seen examined diagnosed in appropriate consults were placed for anesthesia to see the patient. verbal Report from anesthesia, Luis, states that patient has decided not to go for a blood patch at this time and focus of treatment will be pain medication and aggressive hydration I have discussed this with the patient and patient is amenable to it. She has pain medication at home and she is able to drink water. She will be discharged at this time
== END 2017-02-11 20:45 | disposition home or self-care (01) ==
LOC: ER 17:11
DX: O89.4 Spinal and epidural anesthesia-induced headache during the puerperium (principal); Z53.29 Procedure and treatment not carried out because of patient's decision for other reasons

== ENCOUNTER 2017-05-23 19:46 | Emergency (ER) | payer MEDICAID, OTHER ==
--- NOTE | 2017-05-23 20:50 | ERNOTE ---
Headache ER HPI - Narrative Date of Service: 05/23/17 - General Presenting Symptoms: headache Time Seen by Provider: 05/23/17 20:35 Source: patient Exam Limitations: no limitations - Immun/Allergies/Home Medications Immunizations: IMMUNIZATION HX Immunizations Up to Date Yes History of Influenza Vaccine No Hx Pneumococcal Vaccination No Allergies/Adverse Reactions: Allergies cefaclor [From Ceclor] Allergy (Intermediate, Verified 02/11/17 17:42) Hives Penicillins Allergy (Intermediate, Verified 02/11/17 17:42) Hives - History of Present Illness Narrative: Pt. comes in with c/o headache for 4 hours that made her feel lightheaded so she had to leave work. Pt. denies any fever, SOB, CP, vomiting, diarrhea. Pt. denies that this is the worst headache ever and staes taht Tylenol improved the headache but still states that it is not resolved at this time. Timing of Headache: gradual Context Headache: Present: new onset. Absent: recent head injury < 24 hrs ago, recent head injury > 24 hrs Quality: Present: achy Severity Maximum: Present: moderate Severity-Currently: Present: mild Headache frequency: Present: occasional headaches, similar to previous headache Modifying Factors - (Improves): Reports: medication Modifying Factors - (Worsens): Reports: other - denies Associated Symptoms: Reports: nasal congestion - ffrontal Prior Treament: Denies: recently seen, treated by physician, recently hospitalized, similar symptoms before, currently on antibiotics Review of Systems - Review of Systems Constitutional: Present: no symptoms reported. Absent: fever, chills, weakness , fatigue, malaise EYE: Present: no symptoms reported. Absent: eye pain, double vision ENT: Present: no symptoms reported. Absent: nose pain, nose congestion, nasal drainage, sore throat, throat swelling Respiratory: Present: no symptoms reported. Absent: shortness of breath, cough , wheezing Cardiology: Present: no symptoms reported Gastrointestinal/Abdominal: Present: no symptoms reported. Absent: nausea, abdominal pain Genitourinary: Present: no symptoms reported. Absent: frequency, decreased urinary output Musculoskeletal: Present: no symptoms reported. Absent: back pain, neck pain, joint pain Skin: Present: no symptoms reported. Absent: rash, change in hair/nails Neurological: Present: no symptoms reported. Absent: headache, dizziness/light- headedness, numbness, tingling Endocrine: Present: no symptoms reported All Other Systems: All systems neg except as marked - Patient's Past Medical History Patient History - Medical: Anemia, Anxiety, Depression Patient History - Cardiac/Respiratory: Asthma, Bronchitis, Other Patient History - Cancer: No Hx of Cancer Patient History - Surgical Procedures: , Ear Tubes, T & A, Other Patient History - Other: None - Family History Mother Family History - Medical: Diabetes Type 2 Brother Family History - Medical: , Other - Social History Abuse History: No History of abuse Psych History: No pertinent hx Smoking Status: Never smoker Have you smoked in the past 12 months: No Do you dip or chew tobacco: No Alcohol Use: none Drug Use: none - Immunizations Immunizations Up to Date: Yes Hx Pneumococcal Vaccination: No History of Influenza Vaccine: No Physical Exam - Physical Exam General Appearance: Present: wd/wn, alert, no apparent distress Head Exam: Present: normal inspection, no evidence of injury, no tenderness w palpation Eye Exam: Normal inspection: bilateral, PERRL: bilateral, EOMI: bilateral Ears, Nose, Throat: Present: nasal congestion, normal pharynx Neck: Present: normal inspection, nontender, supple, full range of motion. Absent: lymphadenopathy (R), lymphadenopathy (L) Respiratory: Present: no respiratory distress, normal breath sounds, no accessory muscle use, chest nontender, lungs clear Cardiovascular/Chest: Present: regular rate, rhythm, no murmur, normal peripheral pulses Gastrointestinal/Abdominal: Present: normal bowel sounds, nontender, nondistended, soft, no organomegaly Back Exam: Present: normal inspection Extremity Exam: Present: normal inspection Neurological Exam: Present: alert, oriented, normal mood/affect, no motor/ sensory deficits Skin Exam: Present: warm/dry, pallor. Absent: skin rash ED Progress - Results and Orders Patient's Lab Results:: I have reviewed the patient's lab results. Results and Orders: Laboratory Results - last 24 hr 05/23/17 20:00 Influenza Type A Ag Negative Influenza Type B Ag Negative - Vital Signs Patient's Vital Signs:: I have reviewed the patient's vital signs. Vital Signs: Vital Signs 05/23/17 19:53 Temperature 37.4 C Pulse Rate 121 H Respiratory 18 Rate Blood Pressure 160/94 O2 Sat by Pulse 99 Oximetry - Progress/Reassessment Chief Complaint: Headache Progress:: Pain free at discharge Departure Clinical Impression: Upper respiratory infection Qualifiers: URI type: unspecified URI Qualified Code(s): J06.9 - Acute upper respiratory infection, unspecified - Departure Disposition: Home self-care Condition: Good Instructions: Form - Excuse from Work, School, or Physical Activity, Upper Respiratory Infection, Pediatric, [id number] Additional Instructions: Please follow up with primary provider if not improved in 2-3 days
[2017-05-23] MEDS ORDERED: METOCLOPRAMIDE HCL 5 MG/ML VIAL ONE (20:51)
[2017-05-23] MEDS ORDERED: diphenhydrAMINE HCL 50 MG/ML VIAL ONE (20:51)
[2017-05-23] MEDS ORDERED: KETOROLAC TROMETHAMINE 60 MG/2 ML VIAL IM ONE (20:51)
[2017-05-23] MEDS: METOCLOPRAMIDE HCL 5 MG/ML VIAL IM ONE (20:59)
[2017-05-23] MEDS: KETOROLAC TROMETHAMINE 60 MG/2 ML VIAL IM ONE (21:00)
[2017-05-23] MEDS: diphenhydrAMINE HCL 50 MG/ML VIAL IM ONE (21:00)
[2017-05-23 21:07] VITALS: BP 119/88
== END 2017-05-23 21:40 | disposition home or self-care (01) ==
LOC: ER 19:46
DX: J06.9 Acute upper respiratory infection, unspecified

== ENCOUNTER 2018-07-09 13:36 | Observation (INO) ==
--- NOTE | 2018-07-09 13:57 | ERNOTE ---
Back Pain ER HPI Date of Service: 07/09/18 Time Seen by Provider: 07/09/18 13:44 Source: patient Exam Limitations: no limitations Immunizations: IMMUNIZATION HX Immunizations Up to Date Yes History of Influenza Vaccine No Hx Pneumococcal Vaccination No Allergies/Adverse Reactions: Allergies cefaclor [From Ceclor] Allergy (Intermediate, Verified 07/09/18 13:44) Hives Penicillins Allergy (Intermediate, Verified 07/09/18 13:44) Hives sertraline [From Zoloft] Adverse Reaction (Verified 07/09/18 13:44) Suicidal Ideations Home Medications: HOME MEDICATIONS albuterol sulfate HFA 90 mcg/actuation aerosol inhaler 2 puff IH Q6H PRN 11/05/17 [Last Taken Unknown] levonorgestrel 20 mcg/24 hr (5 years) intrauterine device 1 insert INTRAUTERINE ONCE ea 02/22/18 [Last Taken 02/24/17] Ibuprofen [Motrin] 800 mg PO TID PRN #60 tab 03/22/18 [Last Taken Unknown] aripiprazole 10 mg tablet 10 mg PO DAILY #30 tab 06/28/18 [Last Taken Unknown] lamotrigine 25 mg (42)-100 mg (7) tablets in a dose pack See Rx Instructions PO PER PKG DIR #49 tab 06/28/18 [Last Taken Unknown] - Pain Score Pain Score #1 Pain Score: 9 Narrative: The patient is a 22 year old female who presents for pain under right breast which has been present since . There are no associated symptoms. The patient reports pain under right breast, 9/10. There are no alleviating factors. There are aggravating factors of breathing. Previous treatments have included: Voltaren, Tylenol and Ibuprofen without improvement. The past medical history includes: patent ductus arteriosus, anxiety, asthma, depression, anemia, Bipolar and history of meth abuse. The social history is positive for tobacco use with recent cessation on . The patient has had no known ill contacts. Patient states she was evaluated with lab and xray testing at [facility] ER on but reports symptoms have been worsening. Review of Systems - Review of Systems Constitutional: Present: fatigue. Absent: fever, chills EYE: Present: no symptoms reported ENT: Present: no symptoms reported. Absent: ear pain, nasal drainage, sore throat Respiratory: Present: shortness of breath. Absent: cough, wheezing Cardiology: Present: chest pain. Absent: edema Gastrointestinal/Abdominal: Present: nausea, abdominal pain. Absent: vomiting, diarrhea Genitourinary: Present: no symptoms reported. Absent: dysuria Musculoskeletal: Present: no symptoms reported. Absent: back pain Skin: Present: no symptoms reported. 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) Bipolar disorder (Chronic) Anxiety Asthma Depression Heart murmur Scoliosis Unequal leg length (acquired) Amblyopia, strabismic Anemia Onset Date: 11/18/16 with pregnancies Bronchitis Elbow fracture, left Fracture of hip, left, closed Gestational diabetes Onset Date: ~2014 Headache Onset Date: Unknown History of respiratory distress syndrome Hx of bronchopulmonary dysplasia Impetigo Otitis media PDA (patent ductus arteriosus) Pharyngitis Pneumonia Pre-syncope Premature delivery infant Onset Date: Unknown Pyelonephritis Retinopathy of prematurity of both eyes, stage 0 Shoulder fracture, left Upper respiratory infection Surgical History: Surgical History (Last Reviewed 07/09/18 @ 13:54 by STEVIE Vicente) History of adenoidectomy History of eye surgery History of myringotomy History of nasal surgery History of open heart surgery History of ovarian cystectomy Onset Date: 02/04/16 right Hx of section 2014 & 2015 @ [facility]. 2016 - repeat with right ovarian cystectomy. 2017 repeat . Hx of tonsillectomy Family History: Family History (Last Reviewed 07/09/18 @ 13:54 by STEVIE Vicente) Aunt Depression Suicide attempt Mother Depression Diabetes Anxiety Drug abuse Grandfather , maternal Heart disease Hypertension Cancer Grandmother Diabetes Father Heart disease Drug abuse Social History: Preferred Language Amharic Smoking Status Current every day smoker Have you smoked in the past 12 Yes months Abuse History No History of abuse Psych History No pertinent hx Alcohol Use none Drug Use none (Last Updated 06/28/18 @ 09:32 by AUGUSTIN Arce) No Social History Section defined Physical Exam - Physical Exam General Appearance: Present: wd/wn, alert, moderate distress, crying Head Exam: Present: normal inspection Neck: Present: normal inspection Respiratory: Present: no respiratory distress, normal breath sounds, no accessory muscle use, chest tenderness - right anterior lower chest under breast tissue, wheezing - intermittent to right mid lung Cardiovascular/Chest: Present: no murmur, tachycardia Gastrointestinal/Abdominal: Present: normal bowel sounds, nondistended, soft, no organomegaly, tenderness - RUQ Extremity Exam: Present: no edema Neurological Exam: Present: alert, oriented, normal mood/affect Skin Exam: Present: normal color, warm/dry Progress - Date and Time Seen: Date and Time: 07/09/18 16:43 Discussed abnormal gallbladder findings on CTA with along with pain consistent with RUQ and elevated WBC and CRP. requesting US gallbladder in ER instead of outpatient. 07/09/18 18:57 Discussed results of US with , would like patient admitted with plan for surgery in am and start IV antibiotics. Requesting admission to medicine. Discussed admission to and accepted patient, discussed plan for am surgery and initiation of antibiotics. - Results and Orders Patient's Lab Results:: I have reviewed the patient's lab results. - Vital Signs Patient's Vital Signs:: I have reviewed the patient's vital signs. Vital Signs: Vital Signs 07/09/18 13:45 Temperature 36.7 C Pulse Rate 129 H Respiratory Rate 17 Blood Pressure 124/101 H O2 Sat by Pulse Oximetry 97 - X-Ray X-Ray #1 X-Ray: abdomen Interpretation: Reviewed by me X-ray Comments: IMPRESSION: 1. Nonobstructive bowel gas pattern. 2. Additional comments are as above. Electronically signed by Luis Alberto Reynolds M.D - CT/Ultrasound CT/Ultrasound Narrative: IMPRESSION: 1. Negative for acute pulmonary thromboembolism. Incidental tiny air embolism within the main pulmonary artery which may be related to recent peripheral IV contrast or fluid injection. 2. Negative for acute thoracic aortic finding. 3. Asymmetric, relatively hyperinflated right lung (suggestive of air trapping), with bronchiectasis of the right upper lobe, right middle lobe bronchi, which could be congenital versus acquired from previous infections (in the absence of any fibrotic changes to suggest traction bronchiectasis). 4. Bronchial wall thickening, and likely mucus plugging versus aspirated material causing opacification of the right lower lobe common basal segmental bronchus. Mild right-sided hilar lymphadenopathy, which is presumably reactive but potential neoplasm would be difficult to exclude. Consider follow-up chest CT in 3 months to document resolution as potential endobronchial lesion would be difficult to exclude. 5. Consider pulmonology consultation/referral. 6. Fatty liver, with partially visualized gallbladder demonstrating potential distention as well as stranding and adjacent liver enhancement suggestive of inflammation. Consider potential acute versus chronic gallbladder pathology. Consider further evaluation as needed. Electronically signed by Luis Alberto Reynolds M.D.. - Progress/Reassessment Chief Complaint: Back Pain Departure Clinical Impression: Acute calculous cholecystitis - Departure Disposition: Still a patient Condition: Stable
[2018-07-09 14:05] LABS: Hematocrit 47.6 % (37.0-47.0); Hemoglobin 15.3 gm/dL (12.5-16.0); Mean Cell Volume 86.7 fl (78-100); Mean Corpuscular Hemoglobin 27.9 pg (27-31); Mean Corpuscular Hgb Conc 32.1 g/dl (32-36); Mean Platelet Volume 9.1 fl (8-12.5); Neutrophil # 10.2 K/mm3 (1.3-6.0); Neutrophil % 78.8 % (42-75.0); Platelet Count 357 K/mm3 (150-450); Red Blood Count 5.49 M/mm3 (4.2-5.4); Red Cell Distribution Width 13.5 % (11.5-14.0); White Blood Count 12.9 K/mm3 (4.0-10.5)
[2018-07-09 14:18] LABS: Albumin * 3.5 gm/dl (3.4-5.0); Anion Gap 12.2 mmol/L (6.8-13.8); Bilirubin, Total 0.7 mg/dL (0.0-1.1); Ca. Corrected For Albumin 9.6 mg/dL (8.4-10.2); Calcium * 9.5 mg/dL (7.9-10.9); Carbon Dioxide 29.8 mmol/L (24-32.6); Total Protein 8.6 gm/dL (6.2-8.2)
[2018-07-09 14:43] LABS: Urine Bilirubin Negative (NEGATIVE); Urine Blood Negative /ul (NEGATIVE); Urine Ketone Negative (NEGATIVE); Urine Nitrite Negative (NEGATIVE); Urine Protein Negative (NEGATIVE); Urine Urobilinogen Normal (NORMAL)
[2018-07-09] MEDS ORDERED: MORPHINE SULFATE 2 MG/ML DISP.SYRIN IV ONE ×2 (14:46→16:35)
[2018-07-09 14:59] LABS: Urine Amorphous Sediment TRACE (NONE-FEW); Urine Appearance Slightly Cloudy (CLEAR); Urine Bacteria TRACE; Urine Color Yellow; Urine Mucus TRACE; Urine RBC None Seen /hpf (0-5); Urine WBC 0-5 /hpf (0-5)
[2018-07-09] MEDS ORDERED: MORPHINE SULFATE 4 MG/ML SYRG ONE (17:17)
[2018-07-09] MEDS ORDERED: MORPHINE SULFATE 4 MG/ML SYRG IV ONE (17:18)
[2018-07-09] MEDS ORDERED: metroNIDAZOLE/SODIUM CHLORIDE 500 MG/100 ML BAG IV ONE (17:40)
[2018-07-09] MEDS ORDERED: LEVOFLOXACIN IN DEXTROSE 5 % 500 MG/100 ML BAG IV SCH (17:45)
[2018-07-09] MEDS ORDERED: ONDANSETRON HCL/PF 2 MG/ML VIAL IV PRN (18:10)
[2018-07-09] MEDS: NORMAL SALINE 1,000 ML IV PRN (19:29)
[2018-07-09] MEDS: MORPHINE SULFATE 2 MG/ML DISP.SYRIN IV PRN (21:08)
[2018-07-09] MEDS ORDERED: ALBUTEROL SULFATE 200 PUFF INHALER IH PRN (22:15)
[2018-07-09] MEDS ORDERED: IBUPROFEN 800 MG TABLET PO PRN (22:15)
[2018-07-09] MEDS ORDERED: LEVONORGESTREL Intrauterine SCH (22:15)
--- NOTE | 2018-07-09 22:25 | HP ---
Chief Complaint - Chief Complaint Date of Service: 07/09/18 Time of Service: 10:00 Chief Complaint: RUQ abd. pain History of Present Illness: Wilda Francisco is a 22-year-old female presented to ER with right upper quadrant abdominal pain. In the evaluation he was found that she has the appearance of acute cholecystitis and cholelithiasis. She is admitted for pain and nausea management. Dr. Mcdermott was contacted and will see her in the morning. She'll be kept nothing by mouth after midnight and probably will have a laparoscopic cholecystectomy tomorrow. She can take her evening medicines tonight but then nothing by mouth afterwards. Other than obesity she otherwise enjoys good health. 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) Bipolar disorder (Chronic) Anxiety Asthma Depression Heart murmur Scoliosis Unequal leg length (acquired) Amblyopia, strabismic Anemia Onset Date: 11/18/16 with pregnancies Bronchitis Elbow fracture, left Fracture of hip, left, closed Gestational diabetes Onset Date: ~2014 Headache Onset Date: Unknown History of respiratory distress syndrome Hx of bronchopulmonary dysplasia Impetigo Otitis media PDA (patent ductus arteriosus) Pharyngitis Pneumonia Pre-syncope Premature delivery Onset Date: Unknown Pyelonephritis Retinopathy of prematurity of both eyes, stage 0 Shoulder fracture, left Upper respiratory infection Surgical History: Surgical History (Last Reviewed 07/09/18 @ 20:03 by Christi Duran RN) History of adenoidectomy History of eye surgery History of myringotomy History of nasal surgery History of open heart surgery History of ovarian cystectomy Onset Date: 02/04/16 right Hx of section 2014 & 2015 @ [facility]. 2016 - repeat with right ovarian cystectomy. 2017 repeat . 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 Smoking Status Former smoker Have you smoked in the past 12 Yes months Do you dip or chew tobacco No Abuse History No History of abuse Psych History No pertinent hx Alcohol Use none Drug Use none (Last Updated 06/28/18 @ 09:32 by AUGUSTIN Arce) No Social History Section defined Review Of Systems (GEN) - Review of Systems Generalized/Overall Review: Present: Chills, Fever EENTM: Present: No Symptoms Reported Respiratory: Present: No Symptoms Reported Cardiac: Present: No Symptoms Reported Abdominal: Present: Abdominal Pain - Right upper quadrant Genitourinary: Present: No Symptoms Reported Musculoskeletal: Present: No Symptoms Reported Neurological: Present: No Symptoms Reported Skin: Present: No Symptoms Reported Endocrine: Present: No Symptoms Reported Misc: All systems neg except as marked Immunizations: IMMUNIZATION HX Immunizations Up to Date Yes History of Influenza Vaccine No Hx Pneumococcal Vaccination No Allergies/Adverse Reactions: Allergies Allergy/AdvReac Type Severity Reaction Status Date / Time cefaclor [From Ceclor] Allergy Intermediate Hives Verified 07/09/18 13:44 Penicillins Allergy Intermediate Hives Verified 07/09/18 13:44 sertraline [From Zoloft] AdvReac Suicidal Verified 07/09/18 13:44 Ideations Home Medications: HOME MEDICATIONS albuterol sulfate HFA 90 mcg/actuation aerosol inhaler 2 puff IH Q6H PRN 11/05/17 [Last Taken Unknown] levonorgestrel 20 mcg/24 hr (5 years) intrauterine device 1 insert INTRAUTERINE ONCE ea 02/22/18 [Last Taken 02/24/17] Ibuprofen [Motrin] 800 mg PO TID PRN #60 tab 03/22/18 [Last Taken Unknown] aripiprazole 10 mg tablet 10 mg PO DAILY #30 tab 06/28/18 [Last Taken 07/07/18] lamotrigine 25 mg (42)-100 mg (7) tablets in a dose pack See Rx Instructions PO PER PKG DIR #49 tab 06/28/18 [Last Taken 07/07/18] Exam - Exam Vital Signs: Vital Signs - Last Taken Temp 36.7 C 07/09/18 17:58 Pulse 83 07/09/18 17:58 Resp 16 07/09/18 17:58 BP 127/77 07/09/18 17:58 Pulse Ox 95 07/09/18 17:58 Constitutional: Present: Alert, Oriented x3, Cooperative, Well developed, Well nourished, No distress Eye Exam: bilateral eye: normal inspection, PERRL, EOMI Neck: Present: non-tender, full range of motion, supple Back Exam: Present: normal inspection, no CVA tenderness, no vertebral tenderness Breasts: Present: Exam deferred Respiratory: Present: chest non-tender, lungs clear, normal breath sounds, no respiratory distress, no accessory muscle use Cardiovascular/Chest: Present: normal peripheral pulses, regular rate, rhythm, no chest tenderness, no edema, no gallop, no JVD, no murmur, no rub Peripheral Pulses: carotid (R): 2+, carotid (L): 2+, radial (R): 2+, radial (L): 2+ Abdomen: Present: Normal bowel sounds, soft, positive Valencia sign /Rectal: Present: Exam deferred Extremity: Present: normal range of motion, non-tender, normal inspection, no pedal edema, no calf tenderness, normal capillary refill Skin Exam: Present: normal color, warm/dry Lymphatic: Present: no adenopathy Neurologic: Present: director client II-XII nml as tested Appearance: Present: appropriate appearance Eye contact: Present: cooperative, good eye contact, normal speech Thoughts: Present: normal thought pattern, no apparent hallucination Diagnostic Studies: Abnormal Lab Results 07/09/18 07/09/18 07/09/18 Range/Units 13:59 13:59 13:59 WBC 12.9 H (4.0-10.5) K/mm3 RBC 5.49 H (4.2-5.4) M/mm3 Hct 47.6 H (37.0-47.0) % Immature Gran # (Auto) 0.05 H (0.000-0.0310) K/mm3 Neutrophils % 78.8 H (42-75.0) % Lymphocytes % 12.3 L (20-51) % Neutrophils # 10.2 H (1.3-6.0) K/mm3 D-Dimer 1.26 H (0.19-0.49) ug/mL Random Glucose 118 H (70-110) mg/dL C-Reactive Prot, Quant (0.0-0.9) mg/dL Total Protein 8.6 H (6.2-8.2) gm/dL Lipase 68 L (73-393) U/L 07/09/18 Range/Units 13:59 WBC (4.0-10.5) K/mm3 RBC (4.2-5.4) M/mm3 Hct (37.0-47.0) % Immature Gran # (Auto) (0.000-0.0310) K/mm3 Neutrophils % (42-75.0) % Lymphocytes % (20-51) % Neutrophils # (1.3-6.0) K/mm3 D-Dimer (0.19-0.49) ug/mL Random Glucose (70-110) mg/dL C-Reactive Prot, Quant 18.7 H (0.0-0.9) mg/dL Total Protein (6.2-8.2) gm/dL Lipase (73-393) U/L Laboratory Results WBC 12.9 K/mm3 (4.0-10.5) H 07/09/18 13:59 RBC 5.49 M/mm3 (4.2-5.4) H 07/09/18 13:59 Hgb 15.3 gm/dL (12.5-16.0) 07/09/18 13:59 Hct 47.6 % (37.0-47.0) H 07/09/18 13:59 MCV 86.7 fl (78-100) 07/09/18 13:59 MCH 27.9 pg (27-31) 07/09/18 13:59 MCHC 32.1 g/dl (32-36) 07/09/18 13:59 RDW 13.5 % (11.5-14.0) 07/09/18 13:59 Plt Count 357 K/mm3 (150-450) 07/09/18 13:59 MPV 9.1 fl (8-12.5) 07/09/18 13:59 Immature Gran % (Auto) 0.40 % (0.001-0.429) 07/09/18 13:59 Immature Gran # (Auto) 0.05 K/mm3 (0.000-0.0310) H 07/09/18 13:59 Neutrophils % 78.8 % (42-75.0) H 07/09/18 13:59 Lymphocytes % 12.3 % (20-51) L 07/09/18 13:59 Monocytes % 6.0 % (0.0-9) 07/09/18 13:59 Eosinophils % 2.2 % (0.0-3.0) 07/09/18 13:59 Basophils % 0.3 % (0.0-1.0) 07/09/18 13:59 Nucleated RBC % 0.0 k/mm3 (0-1) 07/09/18 13:59 Neutrophils # 10.2 K/mm3 (1.3-6.0) H 07/09/18 13:59 Lymphocytes # 1.59 k/mm3 (1.5-3.5) 07/09/18 13:59 Monocytes # 0.8 k/mm3 (0.0-1.0) 07/09/18 13:59 Eosinophils # 0.3 k/mm3 (0.0-0.7) 07/09/18 13:59 Absolute Basophils 0.0 k/mm3 (0.0-0.1) 07/09/18 13:59 D-Dimer 1.26 ug/mL (0.19-0.49) H 07/09/18 13:59 Sodium 137 mmol/L (132-142) 07/09/18 13:59 Plasma Sodium 137 mmol/L (130-142) 07/09/18 13:59 Potassium 4.0 mmol/L (3.4-4.6) D 07/09/18 13:59 Chloride 99 mmol/L (97-106) 07/09/18 13:59 Carbon Dioxide 29.8 mmol/L (24-32.6) 07/09/18 13:59 Anion Gap 12.2 mmol/L (6.8-13.8) 07/09/18 13:59 BUN 10 mg/dL (3-23) 07/09/18 13:59 Creatinine 0.83 mg/dL (0.4-1.4) 07/09/18 13:59 Est GFR (Non-Af Amer) 90 mL/min (60-130) 07/09/18 13:59 BUN/Creatinine Ratio 12.0 (9.0-21.6) 07/09/18 13:59 Random Glucose 118 mg/dL (70-110) H 07/09/18 13:59 Calcium 9.5 mg/dL (7.9-10.9) 07/09/18 13:59 Calcium Adj for Albumin 9.6 mg/dL (8.4-10.2) 07/09/18 13:59 Total Bilirubin 0.7 mg/dL (0.0-1.1) 07/09/18 13:59 AST 17 U/L (0-48) 07/09/18 13:59 ALT 25 U/L (19-67) 07/09/18 13:59 Alkaline Phosphatase 96 U/L (50-170) 07/09/18 13:59 C-Reactive Prot, Quant 18.7 mg/dL (0.0-0.9) H 07/09/18 13:59 Total Protein 8.6 gm/dL (6.2-8.2) H 07/09/18 13:59 Albumin 3.5 gm/dl (3.4-5.0) 07/09/18 13:59 Amylase 32 U/L (25-115) 07/09/18 13:59 Lipase 68 U/L (73-393) L 07/09/18 13:59 Serum HCG, Qual Negative (NEGATIVE) 07/09/18 Unknown Urine Color Yellow 07/09/18 14:39 Urine Appearance Slightly cloudy (CLEAR) 07/09/18 14:39 Urine pH 7.0 pH (5.0-7.0) 07/09/18 14:39 Ur Specific [place] 1.020 SP.GR. (1.005-1.010) 07/09/18 14:39 Urine Protein Negative mg/dL (NEGATIVE) 07/09/18 14:39 Urine Glucose (UA) Negative mg/dL (NEGATIVE) 07/09/18 14:39 Urine Ketones Negative mg/dL (NEGATIVE) 07/09/18 14:39 Urine Blood Negative /ul (NEGATIVE) 07/09/18 14:39 Urine Nitrate Negative (NEGATIVE) 07/09/18 14:39 Urine Bilirubin Negative mg/dl (NEGATIVE) 07/09/18 14:39 Urine Urobilinogen Normal EU/dl (NORMAL) 07/09/18 14:39 Ur Leukocyte Esterase Negative /ul (NEGATIVE) 07/09/18 14:39 Urine RBC None seen /hpf (0-5) 07/09/18 14:39 Urine WBC 0-5 /hpf (0-5) 07/09/18 14:39 Ur Epithelial Cells 0-5 /hpf (0-5) 07/09/18 14:39 Amorphous Sediment Trace (NONE-FEW) 07/09/18 14:39 Urine Bacteria Trace (NONE) 07/09/18 14:39 Urine Mucus Trace (NONE) 07/09/18 14:39 Urine Culture Comments No culture indicated 07/09/18 14:39 Assessment/Plan - Narrative Narrative: 1. Continue IV replacement fluids and administer pain or nausea medicines as needed 2. Consultation with Dr. Hinkle tomorrow 3. Nothing by mouth after midnight - Assessment/Plan (1) Acute calculous cholecystitis Problem: Acute (2) Abdominal pain Problem: Acute Qualifiers: Abdominal location: right upper quadrant Qualified Code(s): R10.11 - Right upper quadrant pain
[2018-07-10] MEDS: MORPHINE SULFATE 2 MG/ML DISP.SYRIN IV PRN ×5 (04:04→13:36)
[2018-07-10] MEDS ORDERED: ALBUTEROL SULFATE 2.5 MG/0.5 ML VIAL.NEB IH PRN (06:30)
--- NOTE | 2018-07-10 08:58 | CONS ---
- Reason for consultation (1) Acute cholecystitis Date of Service: 07/10/18 HPI - General Source: patient Exam Limitations: no limitations - History of Present Illness Initial Comments: Having symptoms since Timing/Duration: other - Symptoms since Severity: moderate Modifying Factors - (Worsens): Reports: eating Modifying Factors - (Improves): Reports: medication Associated Symptoms: chest pain, loss of appetite, malaise, nausea Allergies/Adverse Reactions: Allergies cefaclor [From Ceclor] Allergy (Intermediate, Verified 07/09/18 13:44) Hives Penicillins Allergy (Intermediate, Verified 07/09/18 13:44) Hives sertraline [From Zoloft] Adverse Reaction (Verified 07/09/18 13:44) Suicidal Ideations Home Medications: Home Medications Medication Instructions Recorded Last Taken albuterol sulfate HFA 90 2 puff IH Q6H PRN 11/05/17 Unknown mcg/actuation aerosol inhaler levonorgestrel 20 mcg/24 hr (5 1 insert INTRAUTERINE ONCE ea 02/22/18 02/24/17 years) intrauterine device Ibuprofen [Motrin] 800 mg PO TID PRN #60 tab 03/22/18 Unknown aripiprazole 10 mg tablet 10 mg PO DAILY #30 tab 06/28/18 07/07/18 lamotrigine 25 mg (42)-100 mg (7) See Rx Instructions PO PER PKG DIR 06/28/18 07/07/18 tablets in a dose pack #49 tab Procedures Adenoidectomy without tonsillectomy (01/29/99) Closure of skin and subcutaneous tissue of other sites (06/10/99) Drainage of Amniotic Fluid, Therapeutic from Products of Conception, Via Natural or Artificial Opening (02/07/17) Excision of Right Ovary, Open Approach (02/04/16) Extraction of Products of Conception, Low Cervical, Open Approach (02/07/17) Monitoring of Products of Conception, Cardiac Rate, External Approach (02/07/17) Myringotomy with insertion of tube (05/18/07) Repair Left Hand Skin, External Approach (05/10/16) Rhinoscopy (05/28/04) Medications - Medications Current Medications: Current Medications Levofloxacin/Dextrose (Levaquin) 500 mg in 100 mls @ 100 mls/hr IV ONCE RYAN; Protocol Stop: 08/08/18 17:46 Last Infusion: 07/09/18 21:25 Dose: Infused Documented by: Sodium Chloride (Sodium Chloride 0.9%) 1,000 mls @ 80 mls/hr IV .[id number] PRN PRN Reason: HYDRATION Stop: 08/08/18 18:11 Last Admin: 07/09/18 19:29 Dose: 80 mls/hr Documented by: Morphine Sulfate (Morphine Sulfate) 2 mg IV Q1H PRN PRN Reason: Pain Stop: 08/08/18 18:11 Last Admin: 07/10/18 06:42 Dose: 2 mg Documented by: Review of Systems - Review of Systems Generalized/Overall Review: Present: Malaise EENTM: Present: No Symptoms Reported Respiratory: Present: No Symptoms Reported Cardiac: Present: Chest Pain Abdominal: Present: Nausea, Abdominal Pain Genitourinary: Present: No Symptoms Reported Musculoskeletal: Present: No Symptoms Reported Neurological: Present: No Symptoms Reported Skin: Present: No Symptoms Reported Endocrine: Present: No Symptoms Reported Physical Examination - Exam Vital Signs: Vital Signs - Last Taken Temp 36.3 C 07/10/18 07:00 Pulse 83 07/10/18 07:00 Resp 16 07/10/18 07:00 BP 128/73 07/10/18 07:00 Pulse Ox 97 07/10/18 07:00 O2 Oxygen Delivery Method Room Air Constitutional: Present: Alert, Oriented x3, Cooperative, Well developed ENT Exam: Present: hearing grossly normal Neck: Present: supple Breasts: Present: Exam deferred Respiratory: Present: lungs clear, normal breath sounds Cardiovascular/Chest: Present: regular rate, rhythm, no edema Abdomen: Present: Normal bowel sounds, soft, no rebound tenderness, obese, tender, positive Valencia sign. Absent: guarding, rigidity, rebound tenderness, negative Valencia sign /Rectal: Present: Exam deferred Extremity: Present: normal range of motion Skin Exam: Present: normal color Lymphatic: Present: no adenopathy Neurologic: Present: immigration officer II-XII nml as tested Appearance: Present: appropriate appearance Eye contact: Present: cooperative Thoughts: Present: normal thought pattern - Results and Findings: Lab/Microbiology results last 24 hrs: Abnormal/Pending Laboratory Last 24 HRS 07/09/18 07/09/18 07/09/18 13:59 13:59 13:59 WBC RBC Hct Immature Gran # (Auto) Neutrophils % Lymphocytes % Neutrophils # D-Dimer 1.26 H Random Glucose 118 H C-Reactive Prot, Quant 18.7 H Total Protein 8.6 H Lipase 68 L 07/09/18 13:59 WBC 12.9 H RBC 5.49 H Hct 47.6 H Immature Gran # (Auto) 0.05 H Neutrophils % 78.8 H Lymphocytes % 12.3 L Neutrophils # 10.2 H D-Dimer Random Glucose C-Reactive Prot, Quant Total Protein Lipase - Assessments/Findings (1) Acute cholecystitis Problem: Acute (2) Asthma Problem: Acute (3) Morbid obesity Problem: Acute Plan - Plan Plan: I recommend laparoscopic possible open cholecystectomy, with possible intraoperative cholangiogram. We discussed the anatomy and pathophysiology of the biliary system. Risks and benefits of the procedure were discussed including: conversion to an open procedure, bleeding, infection, bile leak, damage to the common bile duct, need for reoperation, and persistence of abdomin al symptoms. The patient voices understanding and would like to proceed. Levaquin and Flagyl are started We'll control her pain and nausea. Thank you for this consultation
[2018-07-10] MEDS: NORMAL SALINE 1,000 ML IV PRN ×2 (09:09→17:48)
[2018-07-10] MEDS: ARIPiprazole 10 MG TABLET PO SCH (09:17)
--- NOTE | 2018-07-10 10:40 | ANES ---
Anesthesia Pre Procedure Eval Vitals/Labs: Last Vital Signs Temp 36.3 C 07/10/18 07:00 Pulse 83 07/10/18 07:00 Resp 16 07/10/18 07:00 BP 128/73 07/10/18 07:00 Pulse Ox 97 07/10/18 07:00 HOME MEDICATIONS albuterol sulfate HFA 90 mcg/actuation aerosol inhaler 2 puff IH Q6H PRN 11/05/17 [Last Taken Unknown] levonorgestrel 20 mcg/24 hr (5 years) intrauterine device 1 insert INTRAUTERINE ONCE ea 02/22/18 [Last Taken 02/24/17] Ibuprofen [Motrin] 800 mg PO TID PRN #60 tab 03/22/18 [Last Taken Unknown] aripiprazole 10 mg tablet 10 mg PO DAILY #30 tab 06/28/18 [Last Taken 07/07/18] lamotrigine 25 mg (42)-100 mg (7) tablets in a dose pack See Rx Instructions PO PER PKG DIR #49 tab 06/28/18 [Last Taken 07/07/18] Allergies/Adverse Reactions: Allergies Allergy/AdvReac Type Severity Reaction Status Date / Time cefaclor [From Ceclor] Allergy Intermediate Hives Verified 07/09/18 13:44 Penicillins Allergy Intermediate Hives Verified 07/09/18 13:44 sertraline [From Zoloft] AdvReac Suicidal Verified 07/09/18 13:44 Ideations - Planned Procedure Planned Procedure: ACUTE CALCULUS CHOLECYSTITIS Medication List Reviewed:: Yes Allergies Verified: Yes Medical History (Last Reviewed 07/10/18 @ 10:39 by Boo De La Torre CRNA) 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) Bipolar disorder (Chronic) Anxiety Asthma Depression Heart murmur Scoliosis Unequal leg length (acquired) Amblyopia, strabismic Anemia Onset Date: 11/18/16 with pregnancies Bronchitis Elbow fracture, left Fracture of hip, left, closed Gestational diabetes Onset Date: ~2014 Headache Onset Date: Unknown History of respiratory distress syndrome Hx of bronchopulmonary dysplasia Impetigo Otitis media PDA (patent ductus arteriosus) Pharyngitis Pneumonia Pre-syncope Premature delivery Onset Date: Unknown Pyelonephritis Retinopathy of prematurity of both eyes, stage 0 Shoulder fracture, left Upper respiratory infection Surgical History (Last Reviewed 07/10/18 @ 10:40 by Boo De La Torre CRNA) History of adenoidectomy History of eye surgery History of myringotomy History of nasal surgery History of open heart surgery History of ovarian cystectomy Onset Date: 02/04/16 right Hx of section 2014 & 2015 @ [facility]. 2016 - repeat with right ovarian cystectomy. 2017 repeat . Hx of tonsillectomy Family History (Last Reviewed 07/10/18 @ 10:40 by Boo De La Torre CRNA) Aunt Depression Suicide attempt Mother Depression Diabetes Anxiety Drug abuse Grandfather , maternal Heart disease Hypertension Cancer Grandmother Diabetes Father Heart disease Drug abuse - Family Anesthesia History Family History:: no untoward family reactions to anesthesia - Airway/Neck/Teeth Within Normal Limits:: Yes Teeth Condition: intact Neck Exam: full range of motion Mallampatti Score: 2 Thyromental (T-M) distance: > 6 cm Mandibulo Hyoid distance: > 3 cm - Respiratory Respiratory History: asthma Respiratory Physical: lungs clear Smoking Status: Former smoker Sleep Apnea currently treated: No Sleep Apnea by current assessment: No - Cardiovascular Tolerate Activity: Fair Heart Sounds: S1 & S2, Regular - Anesthesia Assessment and Plan ASA Class: PS, II Anesthesia Type Plan: General ET Planned difficult intubation/equipment available: No
--- NOTE | 2018-07-10 12:08 | PN ---
Subjective - Date and Time Seen Date: 07/10/18 Time: 09:10 Subjective Narrative: Emma has had an uneventful night although she has been uncomfortable and not slept well. She is prepared for surgery and has been nothing by mouth since midnight. Dr. Hinkle has seen her this morning and plans to take her to the OR at noon for laparoscopic cholecystectomy. She plans to keep her overnight because of the infection in her gallbladder. She is medically cleared for anticipated surgery. Objective - Review of Systems Generalized/Overall Review: Reports: Chills, Fever, Malaise EENTM: Reports: No Symptoms Reported Respiratory: Reports: No Symptoms Reported Cardiac: Reports: No Symptoms Reported Abdominal: Reports: Abdominal Pain - Right upper quadrant Genitourinary Symptoms: Reports: No Symptoms Reported Musculoskeletal Complaints: Reports: No Symptoms Reported Neurological: Reports: No Symptoms Reported Skin: Reports: No Symptoms Reported Endocrine: Reports: No Symptoms Reported - Vitals Vitals: Last Vital Signs Temp 36.3 C 07/10/18 07:00 Pulse 83 07/10/18 07:00 Resp 16 07/10/18 07:00 BP 128/73 07/10/18 07:00 Pulse Ox 97 07/10/18 07:00 - Abnormal Lab Findings Abnormal Lab Findings: Abnormal Lab Results 07/09/18 07/09/18 07/09/18 Range/Units 13:59 13:59 13:59 WBC 12.9 H (4.0-10.5) K/mm3 RBC 5.49 H (4.2-5.4) M/mm3 Hct 47.6 H (37.0-47.0) % Immature Gran # (Auto) 0.05 H (0.000-0.0310) K/mm3 Neutrophils % 78.8 H (42-75.0) % Lymphocytes % 12.3 L (20-51) % Neutrophils # 10.2 H (1.3-6.0) K/mm3 D-Dimer 1.26 H (0.19-0.49) ug/mL Random Glucose 118 H (70-110) mg/dL C-Reactive Prot, Quant (0.0-0.9) mg/dL Total Protein 8.6 H (6.2-8.2) gm/dL Lipase 68 L (73-393) U/L 03/31/19 Range/Units 13:59 WBC (4.0-10.5) K/mm3 RBC (4.2-5.4) M/mm3 Hct (37.0-47.0) % Immature Gran # (Auto) (0.000-0.0310) K/mm3 Neutrophils % (42-75.0) % Lymphocytes % (20-51) % Neutrophils # (1.3-6.0) K/mm3 D-Dimer (0.19-0.49) ug/mL Random Glucose (70-110) mg/dL C-Reactive Prot, Quant 18.7 H (0.0-0.9) mg/dL Total Protein (6.2-8.2) gm/dL Lipase (73-393) U/L - Exam Constitutional: Present: Alert, Oriented x3, Cooperative, Well developed, Well nourished, Acute distress, Mild distress ENT Exam: Present: normal ENT inspection, hearing grossly normal, pharynx normal Neck: Present: non-tender, full range of motion, supple Breasts: Present: Exam deferred Respiratory: Present: chest non-tender, lungs clear, normal breath sounds, no respiratory distress, no accessory muscle use Cardiovascular/Chest: Present: normal peripheral pulses, regular rate, rhythm, no chest tenderness, no edema, no gallop, no JVD, no murmur, no rub Abdomen: Present: Normal bowel sounds, soft, nontender, nondistended, no rebound tenderness, no hepatospenomegaly /Rectal: Present: Exam deferred Extremity: Present: normal range of motion, non-tender, normal inspection, no pedal edema, no calf tenderness, normal capillary refill Skin Exam: Present: normal color, warm/dry, no cyanosis Lymphatic: Present: no adenopathy Neurologic: Present: project manager industrial II-XII nml as tested, normal cerebellar test, alert, normal mood/affect, oriented x 3 Appearance: Present: appropriate appearance, appropriate insight, neat, no memory impairment Eye contact: Present: cooperative, good eye contact, normal speech Thoughts: Present: normal thought pattern, no apparent hallucination Assessment/Plan Plan Narrative: She has been prepared for and will have laparoscopic cholecystectomy done later today. Dr. Hinkle has seen her this morning and explained the surgery to her. She also explained that she'll keep her overnight because of potential infection. - Problems/Diagnosis (1) Acute calculous cholecystitis Problem: Acute (2) Abdominal pain Problem: Acute Qualifiers: Abdominal location: right upper quadrant Qualified Code(s): R10.11 - Right upper quadrant pain
[2018-07-10] MEDS ORDERED: HYDROcodone/ACETAMINOPHEN 1 EACH TABLET PO PRN (13:36)
[2018-07-10] MEDS ORDERED: BUPIVACAINE HCL 50 ML VIAL IJ ONE (14:48)
[2018-07-10] MEDS ORDERED: RINGER'S SOLUTION,LACTATED 1,000 ML IV PRN (15:07)
--- NOTE | 2018-07-10 15:45 | OR ---
Operative Report - Dictated Report Narrative: Date of Service: 07/10/18 Procedure: laparoscopic cholecystectomy Pre-procedure diagnosis: Cholelithiasis with Acute Cholecystitis Post-procedure diagnosis: same Surgeon: Dr. Tigist Hinkle Anesthesia: general Indication for procedure: Emma is a pleasant 22 year old female who was admitted through the ER for acute noe. Description of procedure: After appropriate informed consent was obtained patient was taken to the operating room, placed in the supine position. General anesthesia was achieved. The patient was prepped and draped in the usual sterile fashion. A 5 mm periumbilical incision was made, hemostat was used to dissect down to the fascia. A Veress needle was inserted, a saline drop test was performed which was satisfactory. The abdomen was insufflated to 15 mmHg. A 5mm blunt trocar was placed at the umbilicus. The camera was inserted, there was no evidence of a trocar injury. An 11 mm trocar was placed in subxiphoid position. A 5 mm trocar was placed in the right upper quadrant. An additional 5 mm trocar was placed in the right upper lateral quadrant The patient was placed in a head up, rotated left position, to facilitate exposure. The gallbladder was identified, and was elevated over the liver. The gallbladder was distended, and difficult to grasp. A needle was placed inside the gallbladder and it was decompressed, approximetely 100mL of white fluid was removed. The gallbladder was then easier to grasp. The cystic duct was identified and was dissected out, this was directly entering the gallbladder. The cystic artery was then identified, it was directly entering the gallbladder. There were 3 clips placed on the stay side of the cystic duct, 1 clip was placed on the gallbladder side, the cystic duct was then transected. The cystic artery had 2 clips placed on the stay side, 1 on the gallbladder side. The EndoShears were used to transect the cystic artery. The gallbladder was then removed from the liver bed using electrocautery. The gallbladder was placed in an Endo Catch bag, and removed through the subxiphoid port. The liver was inspected and hemostasis was achieved. The area over the liver was irrigated until clear. The remainder of the abdomen was inspected and was satisfactory. The xiphoid trocar site was closed with an 0 Vicryl suture using a PMI device. The abdomen was desufflated. Local anesthetic was injected. The incisions were closed with inverted interrupted 4-0 Monocryl sutures. Mastisol and Steri- Strips were applied. The patient tolerated the procedure well and was transported to the PACU in satisfactory condition. Estimated blood loss: minimal Complications: none Specimens to pathology: Gallbladder Disposition: Will be admitted back to room for observation.
--- NOTE | 2018-07-10 16:00 | ANES ---
Post Anesthesia Discharge - Transfer of Care Transfer of Care handoff given to nurse: Yes - Discharge from PACU Discharge from PACU when meets criteria: Yes
--- NOTE | 2018-07-10 16:07 | ANES ---
Post Anesthesia Assessment - Vital Signs Vitals: Last Vital Signs Temp 37.0 C 07/10/18 15:40 Pulse 116 H 07/10/18 15:40 Resp 22 H 07/10/18 15:40 BP 137/91 H 07/10/18 15:40 Pulse Ox 94 07/10/18 15:40 Airway Patency: Normal - Mental Status Level Of Consciousness: Drowsy - Pain Level Pain Score: 4 - N/V Assessment Nausea/Vomiting Presence: None Dehydration:: No
[2018-07-11] MEDS: HYDROcodone/ACETAMINOPHEN 1 EACH TABLET PO PRN ×2 (02:34→08:56)
[2018-07-11 06:06] LABS: Hematocrit 40.6 % (37.0-47.0); Hemoglobin 12.8 gm/dL (12.5-16.0); Mean Cell Volume 88.3 fl (78-100); Mean Corpuscular Hemoglobin 27.8 pg (27-31); Mean Corpuscular Hgb Conc 31.5 g/dl (32-36); Mean Platelet Volume 9.4 fl (8-12.5); Neutrophil # 13.5 K/mm3 (1.3-6.0); Neutrophil % 90.8 % (42-75.0); Platelet Count 270 K/mm3 (150-450); Red Cell Distribution Width 13.2 % (11.5-14.0); White Blood Count 14.8 K/mm3 (4.0-10.5)
[2018-07-11 06:24] LABS: Albumin * 2.7 gm/dl (3.4-5.0); Anion Gap 11.2 mmol/L (6.8-13.8); BUN/Creatinine Ratio 14.3 (9.0-21.6); Bilirubin, Total 0.2 mg/dL (0.0-1.1); Ca. Corrected For Albumin 9.2 mg/dL (8.4-10.2); Calcium * 8.5 mg/dL (7.9-10.9); Carbon Dioxide 26.2 mmol/L (24-32.6); Potassium 4.4 mmol/L (3.4-4.6); Total Protein 7.2 gm/dL (6.2-8.2)
--- NOTE | 2018-07-11 08:24 | PN ---
Dictated Progress Note - Date and Time Seen: Date: 07/11/18 Time: 07:45 - Progress Note Narrative: Pt is laying in bed. She barely responds to my questions, will not roll over to face me. Lots of fast food wrappers on her bedside table. No complaints. NAD exam deferred due to non participation Vital Signs - Last Taken Temp 36.9 C 07/11/18 05:54 Pulse 76 07/11/18 05:54 Resp 20 07/11/18 05:54 BP 110/61 07/11/18 05:54 Pulse Ox 100 07/11/18 05:54 Abnormal/Pending Laboratory Last 24 HRS 07/11/18 07/11/18 05:57 05:57 WBC 14.8 H MCHC 31.5 L Immature Gran # (Auto) 0.06 H Neutrophils % 90.8 H Lymphocytes % 4.2 L Neutrophils # 13.5 H Lymphocytes # 0.62 L Random Glucose 238 H D Albumin 2.7 L Imp: POD #1 lap noe for acute noe morbid obesity asthma Plan: ok to DC home from a surgery standpoint. follow up with me in two weeks
--- NOTE | 2018-07-11 08:39 | DS ---
(1) Acute calculous cholecystitis Problem: Acute (2) Abdominal pain Problem: Acute Qualifiers: Abdominal location: right upper quadrant Qualified Code(s): R10.11 - Right upper quadrant pain Description of Stay: 22 yo obese wh fe. admitted with RUQ abdominal pain with fever and chills. US showed findings consistant with acute cholecystitis and cholelithiasis. Dr. Hinkle consulted and she scheduled for surgery yesterday afternoon. No inter or post operative complications except hyperglycemia. Doing well this AM and can go home. Procedures Performed: see notes below - Lap Adriana-Dr. Hinkle List Procedures: Laparoscopic cholecystectomy-Dr. Hinkle Results and Findings: Lab Pending Results 07/09/18 13:59: WBC 12.9 H, RBC 5.49 H, Hgb 15.3, Hct 47.6 H, MCV 86.7, MCH 27.9, MCHC 32.1, RDW 13.5, Plt Count 357, MPV 9.1, Immature Gran % (Auto) 0.40, Immature Gran # (Auto) 0.05 H, Neutrophils % 78.8 H, Lymphocytes % 12.3 L, Monocytes % 6.0, Eosinophils % 2.2, Basophils % 0.3, Nucleated RBC % 0.0, Neutrophils # 10.2 H, Lymphocytes # 1.59, Monocytes # 0.8, Eosinophils # 0.3, Absolute Basophils 0.0 07/09/18 13:59: Sodium 137, Plasma Sodium 137, Potassium 4.0 D, Chloride 99, Carbon Dioxide 29.8, Anion Gap 12.2, BUN 10, Creatinine 0.83, Est GFR (Non-Af Amer) 90, BUN/Creatinine Ratio 12.0, Random Glucose 118 H, Calcium 9.5, Calcium Adj for Albumin 9.6, Total Bilirubin 0.7, AST 17, ALT 25, Alkaline Phosphatase 96, Total Protein 8.6 H, Albumin 3.5, Amylase 32, Lipase 68 L 07/09/18 13:59: D-Dimer 1.26 H 07/09/18 13:59: C-Reactive Prot, Quant 18.7 H 07/09/18 14:39: Urine Color Yellow, Urine Appearance Slightly cloudy, Urine pH 7.0, Ur Specific [place] 1.020, Urine Protein Negative, Urine Glucose (UA) Negative, Urine Ketones Negative, Urine Blood Negative, Urine Nitrate Negative, Urine Bilirubin Negative, Urine Urobilinogen Normal, Ur Leukocyte Esterase Negative, Urine RBC None seen, Urine WBC 0-5, Ur Epithelial Cells 0-5, Amorphous Sediment Trace, Urine Bacteria Trace, Urine Mucus Trace, Urine Culture Comments No culture indicated 07/09/18 : Serum HCG, Qual Negative 07/11/18 05:57: WBC 14.8 H, RBC 4.60, Hgb 12.8, Hct 40.6, MCV 88.3, MCH 27.8, M CHC 31.5 L, RDW 13.2, Plt Count 270, MPV 9.4, Immature Gran % (Auto) 0.40, Immature Gran # (Auto) 0.06 H, Neutrophils % 90.8 H, Lymphocytes % 4.2 L, Monocytes % 4.5, Eosinophils % 0.0, Basophils % 0.1, Nucleated RBC % 0.0, Neutrophils # 13.5 H, Lymphocytes # 0.62 L, Monocytes # 0.7, Eosinophils # 0.0, Absolute Basophils 0.0 07/11/18 05:57: Sodium 137, Plasma Sodium 139, Potassium 4.4, Chloride 104, Carbon Dioxide 26.2, Anion Gap 11.2, BUN 12, Creatinine 0.84, Est GFR (Non-Af Amer) 89, BUN/Creatinine Ratio 14.3, Random Glucose 238 H D, Calcium 8.5, Calcium Adj for Albumin 9.2, Total Bilirubin 0.2, AST 41, ALT 49, Alkaline Phosphatase 84, Total Protein 7.2, Albumin 2.7 L Discharge Location: Home Disposition: Home self-care Condition: Good Discharge Activity: Activity as tolerated Discharge Diet: General/regular food Additional Patient Instructions (free text): See Dr. Hinkle as scheduled See primary care provider within the next 2 weeks Complete Home Medications List: Complete Home Medication List: albuterol sulfate HFA 90 mcg/actuation aerosol inhaler 2 puff IH Q6H PRN 11/05/17 levonorgestrel 20 mcg/24 hr (5 years) intrauterine device 1 insert INTRAUTERINE ONCE ea 02/22/18 Ibuprofen [Motrin] 800 mg PO TID PRN #60 tab 03/22/18 aripiprazole 10 mg tablet 10 mg PO DAILY #30 tab 06/28/18 lamotrigine 25 mg (42)-100 mg (7) tablets in a dose pack See Rx Instructions PO PER PKG DIR #49 tab 06/28/18 HYDROcodone/ACETAMINOPHEN [[place] 5-325] 2 ea PO Q6H PRN #20 tab 07/11/18
[2018-07-11] MEDS: ARIPiprazole 10 MG TABLET PO SCH (08:57)
[2018-07-11 10:25] VITALS: BP 114/65
== END 2018-07-11 10:15 | disposition home or self-care (01) ==
LOC: ER 13:36 → MS 13:36
PROVIDERS: ADMIT Family Medicine; ATTEND Family Medicine
DX: K80.00 Calculus of gallbladder with acute cholecystitis without obstruction
CPT/HCPCS: 36415; 71275; 74019; 74020; 76705; 80053; 81001; 82150; 83690; 84703; 85025; 85379; 86140; 88304; 96365; 99285; G0378